=== PATIENT | male | born 1960 | race Caucasian/White ===

== ENCOUNTER → 2017-12-21 10:54 | Outpatient (CLI) | payer MEDICAID, SELFPAY ==
[2017-12-21 12:54] LABS: AST(SGOT) 25 U/L (15-37); Alanine Aminotransfer ALT/SGPT 51 U/L (16-61); Albumin, Serum 3.7 g/dL (3.2-5.0); Alkaline Phosphatase 91 U/L (45-117); Anion Gap 7 (5-15); BUN 11 mg/dL (7-18); BUN/Creat Ratio 15.3 RATIO (10-20); Calcium,Total 8.2 mg/dL (8.5-10.1); Chloride 104 mmol/L (98-107); Cholesterol 162 mg/dL (200); Creatinine, Serum 0.72 mg/dL (0.70-1.30); EST Glomerular Filtration Rate 119 mL/min (>60); Est Glom Filt Rate - Afr Amer 144 mL/min (>60); Globulin 3.7 g/dL (2.2-4.2); Glucose 181 mg/dL (74-106); High Density Lipoprotein 24 mg/dL; Protein, Total 7.4 g/dL (6.4-8.2); Sodium Level 137 mmol/L (136-145); Thyroid Stim Hormone (TSH) 0.96 uIU/mL (0.358-3.74); Triglycerides 457 mg/dL
== END ==
PROVIDERS: Family Provider Family Medicine; PCP Family Medicine; Visit Provider Family Medicine
DX: E11.9 Type 2 diabetes mellitus without complications (principal)
CPT/HCPCS: 36415; 80053; 80061; 84403; 84443

== ENCOUNTER → 2018-06-21 11:23 | Outpatient (CLI) | payer MEDICAID, SELFPAY ==
--- NOTE | 2018-06-21 11:29 | RAD_ITS ---
STUDY: X-RAY - LUMBAR SPINE REASON FOR EXAM: Male, 57 years old. Back pain TECHNIQUE: 5 view(s) of the lumbar spine were obtained. COMPARISON: None FINDINGS: Normal lumbar lordosis. There is no substantial scoliosis. Minimal degenerative retrolisthesis of L4 in relation to L5. There is multilevel endplate spondylosis of the lumbar vertebrae. There is multi-level degenerative disc disease with multi-level disc space narrowing. Disc space narrowing is worst at L4-L5. There is no demonstrated fracture. Bilateral L5 spondylolysis resulting in minimal anterolisthesis of L5-S1. Operative changes of the abdominal wall noted. RAD/L/S Spine Min 4 Views IMPRESSION: 1. Degenerative disc disease most conspicuous at L4-L5. 2. 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 Electronically Signed: Shelton Colindres MD at 12:45 EST , Service support ,
--- NOTE | 2018-06-21 11:29 | RAD_ITS ---
STUDY: X-RAY - THORACIC SPINE REASON FOR EXAM: Male, 57 years old. back pain. TECHNIQUE: 2 view(s) of the thoracic spine were obtained. COMPARISON: None. FINDINGS: There is straightening of the normal thoracic kyphosis. There is no substantial scoliosis. There is multilevel endplate spondylosis of the thoracic vertebrae. There is multilevel disc space narrowing of the thoracic spine. The soft tissue structures are unremarkable. RAD/Thoracic Spine 3 Views IMPRESSION: Moderate degenerative changes. Electronically Signed: Uma Barth MD at 8:49 EST Tel , Service support ,
[2018-06-21 14:40] LABS: ALB/GLOB Ratio 1.1 RATIO (0.9-2.4); AST(SGOT) 19 U/L (15-37); Alanine Aminotransfer ALT/SGPT 44 U/L (16-61); Albumin, Serum 3.9 g/dL (3.2-5.0); Alkaline Phosphatase 107 U/L (45-117); Anion Gap 7 (5-15); BUN 15 mg/dL (7-18); BUN/Creat Ratio 20.4 RATIO (10-20); Calcium,Total 8.7 mg/dL (8.5-10.1); Chloride 105 mmol/L (98-107); Cholesterol 182 mg/dL (200); Creatinine, Serum 0.73 mg/dL (0.70-1.30); EST Glomerular Filtration Rate 117 mL/min (>60); Est Glom Filt Rate - Afr Amer 141 mL/min (>60); Globulin 3.6 g/dL (2.2-4.2); Glucose 208 mg/dL (74-106); High Density Lipoprotein 29 mg/dL; Potassium 4.4 mmol/L (3.5-5.1); Protein, Total 7.5 g/dL (6.4-8.2); Sodium Level 140 mmol/L (136-145); Triglycerides 355 mg/dL; Very Low Density Lipoprotein 71 mg/dL (5-40)
== END ==
PROVIDERS: Family Provider Family Medicine; PCP Family Medicine; Referring Provider Family Medicine; Visit Provider Family Medicine
DX: E11.9 Type 2 diabetes mellitus without complications (principal); M54.6 Pain in thoracic spine; M54.5 Low back pain
CPT/HCPCS: 36415; 72072; 72110; 80053; 80061

== ENCOUNTER → 2019-01-08 | Outpatient (CLI) | payer MEDICAID, SELFPAY ==
[2019-01-08 15:52] LABS: AST(SGOT) 16 U/L (15-37); Alanine Aminotransfer ALT/SGPT 31 U/L (16-61); Albumin, Serum 3.7 g/dL (3.2-5.0); Alkaline Phosphatase 100 U/L (45-117); Anion Gap 7 (5-15); BUN 14 mg/dL (7-18); Calcium,Total 8.8 mg/dL (8.5-10.1); Chloride 106 mmol/L (98-107); Cholesterol 177 mg/dL (200); Creatinine, Serum 0.82 mg/dL (0.70-1.30); EST Glomerular Filtration Rate 102 mL/min (>60); Est Glom Filt Rate - Afr Amer 124 mL/min (>60); Globulin 3.8 g/dL (2.2-4.2); Glucose 171 mg/dL (74-106); High Density Lipoprotein 26 mg/dL; Potassium 4.1 mmol/L (3.5-5.1); Protein, Total 7.5 g/dL (6.4-8.2); Sodium Level 140 mmol/L (136-145); Thyroid Stim Hormone (TSH) 1.28 uIU/mL (0.358-3.74); Triglycerides 405 mg/dL
== END | disposition home or self-care (01) ==
LOC: MFPLAB 11:46
PROVIDERS: Family Provider Family Medicine; PCP Family Medicine; Referring Provider Family Medicine; Visit Provider Family Medicine
DX: E11.9 Type 2 diabetes mellitus without complications (principal)
CPT/HCPCS: 36415; 80053; 80061; 84403; 84443

== ENCOUNTER → 2020-06-22 12:16 | Outpatient (CLI) | payer MEDICAID, SELFPAY ==
[2020-06-22 15:40] LABS: AST(SGOT) 23 U/L (15-37); Alanine Aminotransfer ALT/SGPT 42 U/L (16-61); Albumin, Serum 3.9 g/dL (3.2-5.0); Alkaline Phosphatase 108 U/L (45-117); Anion Gap 4 (5-15); BUN 12 mg/dL (7-18); Calcium,Total 8.9 mg/dL (8.5-10.1); Chloride 105 mmol/L (98-107); Cholesterol 179 mg/dL (200); Creatinine, Serum 0.86 mg/dL (0.70-1.30); EST Glomerular Filtration Rate 97 mL/min (>60); Est Glom Filt Rate - Afr Amer 118 mL/min (>60); Globulin 3.9 g/dL (2.2-4.2); Glucose 140 mg/dL (74-106); High Density Lipoprotein 29 mg/dL; Potassium 4.2 mmol/L (3.5-5.1); Protein, Total 7.8 g/dL (6.4-8.2); Sodium Level 139 mmol/L (136-145); Triglycerides 217 mg/dL; Very Low Density Lipoprotein 43 mg/dL (5-40)
== END ==
PROVIDERS: PCP Family Medicine; Visit Provider Family Medicine
DX: E11.9 Type 2 diabetes mellitus without complications (principal)
CPT/HCPCS: 36415; 80053; 80061

== ENCOUNTER → 2021-01-19 11:30 | Outpatient (CLI) | payer MEDICAID, SELFPAY ==
[2021-01-19 15:06] LABS: Hematocrit 50.3 % (40-54); Hemoglobin 17.3 g/dL (13.0-16.5); Mean Corp Hgb Conc 34.4 g/dL (32-36); Mean Corpuscular Hgb 32.3 pg (27.0-32.0); Platelet Count 275 K/mm3 (150-450); RBC Distribution Width CV 12.2 % (11.6-14.6); RBC Distribution Width SD 42.2 fl (35.1-43.9); Red Blood Count 5.35 M/mm3 (4.6-6.2); White Blood Count 6.4 K/mm3 (4.4-11.0)
[2021-01-19 15:25] LABS: Vitamin B12 > 2000 pg/mL (211-911)
[2021-01-19 15:27] LABS: Hemoglobin A1c 6.3 % (3.8-5.6)
[2021-01-19 15:31] LABS: ALB/GLOB Ratio 0.9 RATIO (0.9-2.4); AST(SGOT) 23 U/L (15-37); Alanine Aminotransfer ALT/SGPT 40 U/L (16-61); Albumin, Serum 3.9 g/dL (3.2-5.0); Alkaline Phosphatase 103 U/L (45-117); Anion Gap 6 (5-15); BUN 16 mg/dL (7-18); BUN/Creat Ratio 21.5 RATIO (10-20); Calcium,Total 8.7 mg/dL (8.5-10.1); Chloride 106 mmol/L (98-107); Cholesterol 177 mg/dL (200); Creatinine, Serum 0.74 mg/dL (0.70-1.30); EST Glomerular Filtration Rate 114 mL/min (>60); Est Glom Filt Rate - Afr Amer 138 mL/min (>60); Globulin 4.2 g/dL (2.2-4.2); Glucose 150 mg/dL (74-106); High Density Lipoprotein 29 mg/dL; PSA,Total - Annual Screen 1.48 ng/mL (0.00-4.00); Potassium 4.1 mmol/L (3.5-5.1); Protein, Total 8.1 g/dL (6.4-8.2); Sodium Level 137 mmol/L (136-145); Thyroid Stim Hormone (TSH) 0.97 uIU/mL (0.358-3.74); Triglycerides 311 mg/dL; Very Low Density Lipoprotein 62 mg/dL (5-40)
== END ==
PROVIDERS: PCP Family Medicine; Referring Provider Family Medicine; Visit Provider Family Medicine
DX: E11.9 Type 2 diabetes mellitus without complications (principal); Z12.5 Encounter for screening for malignant neoplasm of prostate
CPT/HCPCS: 36415; 80053; 80061; 82607; 83036; 84153; 84403; 84443; 85027; G0103

== ENCOUNTER → 2021-09-07 | Outpatient (CLI) | payer MEDICAID, SELFPAY ==
[2021-09-07 15:06] LABS: Absolute Lymphocyte Count 1.82 X10^3/uL (0.83-4.51); Absolute Neutrophil Count 3.7 X10^3/uL (2.0-7.7); Basophil# 0.06 X10^3/uL; Basophil% 0.9 % (0-1); Hematocrit 47.2 % (40-54); Hemoglobin 15.3 g/dL (13.0-16.5); Lymphocyte # 1.82 X10^3/ul (0.83-4.51); Lymphocyte % 27.2 % (19-41); Mean Corp Hgb Conc 32.4 g/dL (32-36); Mean Corpuscular Hgb 31.9 pg (27.0-32.0); Mean Corpuscular Volume 98.3 fL (80-94); Mean Platelet Vol. 10.4 fl (6.2-12.0); Monocyte# 0.53 X10^3/uL; Monocyte% 7.9 % (0-10); NRBC Flagged by Analyzer 0 % (0-5); Neutrophil # 3.67 X10^3/uL (2.7-7.7); Neutrophil % 54.7 % (47-70); Platelet Count 274 K/mm3 (150-450); RBC Distribution Width CV 12.3 % (11.6-14.6); RBC Distribution Width SD 44.7 fl (35.1-43.9); White Blood Count 6.7 K/mm3 (4.4-11.0)
[2021-09-07 15:23] LABS: AST(SGOT) 27 U/L (15-37); Alanine Aminotransfer ALT/SGPT 31 U/L (16-61); Albumin, Serum 3.7 g/dL (3.2-5.0); Alkaline Phosphatase 76 U/L (45-117); Anion Gap 4 (5-15); BUN 18 mg/dL (7-18); BUN/Creat Ratio 20.9 RATIO (10-20); Calcium,Total 8.7 mg/dL (8.5-10.1); Chloride 103 mmol/L (98-107); Cholesterol 153 mg/dL (200); Creatinine, Serum 0.86 mg/dL (0.70-1.30); EST Glomerular Filtration Rate 96 mL/min (>60); Est Glom Filt Rate - Afr Amer 116 mL/min (>60); Globulin 3.7 g/dL (2.2-4.2); Glucose 139 mg/dL (74-106); Hemoglobin A1c 6.2 % (3.8-5.6); High Density Lipoprotein 31 mg/dL; Potassium 4.7 mmol/L (3.5-5.1); Protein, Total 7.4 g/dL (6.4-8.2); Sodium Level 137 mmol/L (136-145); Triglycerides 113 mg/dL; Very Low Density Lipoprotein 23 mg/dL (5-40)
== END | disposition home or self-care (01) ==
LOC: BIMLAB 12:13
PROVIDERS: PCP Internal Medicine; Referring Provider Internal Medicine; Visit Provider Internal Medicine
DX: E11.9 Type 2 diabetes mellitus without complications (principal); E78.5 Hyperlipidemia, unspecified; I10 Essential (primary) hypertension
CPT/HCPCS: 36415; 80053; 80061; 83036; 85025

== ENCOUNTER → 2022-01-12 | Outpatient (CLI) | payer MEDICAID, SELFPAY ==
[2022-01-12 09:57] LABS: Absolute Lymphocyte Count 1.98 X10^3/uL (0.83-4.51); Absolute Neutrophil Count 3.7 X10^3/uL (2.0-7.7); Basophil# 0.03 X10^3/uL; Basophil% 0.4 % (0-1); Eosinophil# 0.45 X10^3/uL; Eosinophils% 6.6 % (0-5); Hematocrit 47.1 % (40-54); Lymphocyte # 1.98 X10^3/ul (0.83-4.51); Mean Corpuscular Hgb 32.2 pg (27.0-32.0); Mean Corpuscular Volume 94.8 fL (80-94); Mean Platelet Vol. 9.1 fl (6.2-12.0); Monocyte# 0.61 X10^3/uL; Monocyte% 8.9 % (0-10); NRBC Flagged by Analyzer 0 % (0-5); Neutrophil # 3.74 X10^3/uL (2.7-7.7); Neutrophil % 54.8 % (47-70); Platelet Count 264 K/mm3 (150-450); RBC Distribution Width CV 12.3 % (11.6-14.6); RBC Distribution Width SD 42.8 fl (35.1-43.9); Red Blood Count 4.97 M/mm3 (4.6-6.2); White Blood Count 6.8 K/mm3 (4.4-11.0)
[2022-01-12 10:22] LABS: AST(SGOT) 18 U/L (15-37); Alanine Aminotransfer ALT/SGPT 33 U/L (16-61); Albumin, Serum 3.8 g/dL (3.2-5.0); Alkaline Phosphatase 95 U/L (45-117); Anion Gap 6 (5-15); BUN 16 mg/dL (7-18); BUN/Creat Ratio 19.9 RATIO (10-20); Chloride 103 mmol/L (98-107); EST Glomerular Filtration Rate 104 mL/min (>60); Est Glom Filt Rate - Afr Amer 126 mL/min (>60); Glucose 147 mg/dL (74-106); Potassium 3.9 mmol/L (3.5-5.1); Protein, Total 7.8 g/dL (6.4-8.2); Sodium Level 138 mmol/L (136-145)
[2022-01-12 10:27] LABS: Hemoglobin A1c 6.2 % (3.8-5.6)
== END | disposition home or self-care (01) ==
LOC: LAB 09:40
PROVIDERS: PCP Internal Medicine; Referring Provider Internal Medicine; Visit Provider Internal Medicine
DX: I10 Essential (primary) hypertension (principal); E11.9 Type 2 diabetes mellitus without complications; E78.5 Hyperlipidemia, unspecified
CPT/HCPCS: 36415; 80053; 83036; 85025

== ENCOUNTER → 2022-07-12 | Outpatient (CLI) | payer MEDICAID, SELFPAY ==
[2022-07-12 09:43] LABS: Microalbumin:Creatinine Ratio 8.8 mg/g CRE (<30 mg/g CRE)
[2022-07-12 09:51] LABS: Hemoglobin A1c 6.7 % (3.8-5.6)
[2022-07-12 09:56] LABS: AST(SGOT) 27 U/L (15-37); Alanine Aminotransfer ALT/SGPT 39 U/L (16-61); Albumin, Serum 3.7 g/dL (3.2-5.0); Alkaline Phosphatase 101 U/L (45-117); Anion Gap 6 (5-15); BUN 21 mg/dL (7-18); BUN/Creat Ratio 24.4 RATIO (10-20); Chloride 103 mmol/L (98-107); Cholesterol 170 mg/dL (200); Creatinine, Serum 0.86 mg/dL (0.70-1.30); EST Glomerular Filtration Rate 96 mL/min (>60); Est Glom Filt Rate - Afr Amer 116 mL/min (>60); Globulin 3.8 g/dL (2.2-4.2); Glucose 159 mg/dL (74-106); High Density Lipoprotein 26 mg/dL; PSA,Total - Annual Screen 2.07 ng/mL (0.00-4.00); Potassium 4.1 mmol/L (3.5-5.1); Protein, Total 7.5 g/dL (6.4-8.2); Sodium Level 139 mmol/L (136-145); Triglycerides 467 mg/dL
== END | disposition home or self-care (01) ==
LOC: LAB 08:38
PROVIDERS: PCP Internal Medicine; Referring Provider Internal Medicine; Visit Provider Internal Medicine
DX: I10 Essential (primary) hypertension (principal); E11.9 Type 2 diabetes mellitus without complications; E78.5 Hyperlipidemia, unspecified; Z12.5 Encounter for screening for malignant neoplasm of prostate
CPT/HCPCS: 84153; 36415; 80053; 80061; 82043; 82570; 83036; G0103

== ENCOUNTER → 2022-11-07 | Outpatient (CLI) | payer MEDICAID, SELFPAY ==
[2022-11-07 10:30] LABS: Absolute Lymphocyte Count 1.83 X10^3/uL (0.83-4.51); Absolute Neutrophil Count 3.3 X10^3/uL (2.0-7.7); Basophil# 0.05 X10^3/uL; Basophil% 0.8 % (0-1); Eosinophils% 6.5 % (0-5); Hematocrit 45.9 % (40-54); Hemoglobin 15.8 g/dL (13.0-16.5); Lymphocyte # 1.83 X10^3/ul (0.83-4.51); Lymphocyte % 29.9 % (19-41); Mean Corp Hgb Conc 34.4 g/dL (32-36); Mean Corpuscular Hgb 32.9 pg (27.0-32.0); Mean Corpuscular Volume 95.6 fL (80-94); Mean Platelet Vol. 9.3 fl (6.2-12.0); Monocyte# 0.51 X10^3/uL; Monocyte% 8.3 % (0-10); NRBC Flagged by Analyzer 0 % (0-5); Neutrophil # 3.32 X10^3/uL (2.7-7.7); Neutrophil % 54.2 % (47-70); Platelet Count 253 K/mm3 (150-450); RBC Distribution Width CV 12.2 % (11.6-14.6); RBC Distribution Width SD 43.7 fl (35.1-43.9); White Blood Count 6.1 K/mm3 (4.4-11.0)
== END | disposition home or self-care (01) ==
LOC: LAB 09:59
PROVIDERS: PCP Internal Medicine; Referring Provider Internal Medicine; Visit Provider Internal Medicine
DX: E11.9 Type 2 diabetes mellitus without complications (principal); I10 Essential (primary) hypertension; E78.5 Hyperlipidemia, unspecified
CPT/HCPCS: 36415; 84443; 85025

== ENCOUNTER → 2022-11-10 | Outpatient (CLI) | payer MEDICAID, SELFPAY ==
[2022-11-10 11:30] LABS: AST(SGOT) 20 U/L (15-37); Alanine Aminotransfer ALT/SGPT 35 U/L (16-61); Albumin, Serum 3.8 g/dL (3.2-5.0); Alkaline Phosphatase 98 U/L (45-117); Anion Gap 5 (5-15); BUN 13 mg/dL (7-18); BUN/Creat Ratio 13.3 RATIO (10-20); Calcium,Total 9.2 mg/dL (8.5-10.1); Chloride 104 mmol/L (98-107); Creatinine, Serum 0.98 mg/dL (0.70-1.30); EST Glomerular Filtration Rate 83 mL/min (>60); Est Glom Filt Rate - Afr Amer 100 mL/min (>60); Globulin 3.9 g/dL (2.2-4.2); Glucose 186 mg/dL (74-106); Protein, Total 7.7 g/dL (6.4-8.2); Sodium Level 137 mmol/L (136-145)
[2022-11-10 11:31] LABS: Insulin 34.3 mU/L (2.6-37.6)
[2022-11-10 11:33] LABS: Hemoglobin A1c 6.3 % (3.8-5.6)
== END | disposition home or self-care (01) ==
PROVIDERS: PCP Internal Medicine; Referring Provider Internal Medicine; Visit Provider Internal Medicine
DX: E11.9 Type 2 diabetes mellitus without complications (principal); E88.81 Metabolic syndrome and other insulin resistance; I10 Essential (primary) hypertension
CPT/HCPCS: 36415; 80053; 83036; 83525

== ENCOUNTER → 2023-05-19 | Outpatient (CLI) | payer MEDICAID, SELFPAY ==
[2023-05-19 09:59] LABS: Absolute Lymphocyte Count 1.81 X10^3/uL (0.83-4.51); Absolute Neutrophil Count 3.9 X10^3/uL (2.0-7.7); Basophil# 0.04 X10^3/uL; Basophil% 0.6 % (0-1); Eosinophil# 0.56 X10^3/uL; Eosinophils% 8.1 % (0-5); Hematocrit 46.3 % (40-54); Hemoglobin 15.7 g/dL (13.0-16.5); Lymphocyte # 1.81 X10^3/ul (0.83-4.51); Lymphocyte % 26.3 % (19-41); Mean Corp Hgb Conc 33.9 g/dL (32-36); Mean Corpuscular Hgb 32.2 pg (27.0-32.0); Mean Corpuscular Volume 94.9 fL (80-94); Mean Platelet Vol. 9.6 fl (6.2-12.0); Monocyte# 0.53 X10^3/uL; Monocyte% 7.7 % (0-10); NRBC Flagged by Analyzer 0 % (0-5); Neutrophil # 3.93 X10^3/uL (2.7-7.7); Platelet Count 251 K/mm3 (150-450); RBC Distribution Width CV 12.1 % (11.6-14.6); RBC Distribution Width SD 42.2 fl (35.1-43.9); Red Blood Count 4.88 M/mm3 (4.6-6.2); White Blood Count 6.9 K/mm3 (4.4-11.0)
[2023-05-19 10:25] LABS: Hemoglobin A1c 6.7 % (3.8-5.6)
[2023-05-19 10:30] LABS: Vitamin D,25 Hydroxy 31.5 ng/mL
[2023-05-19 10:46] LABS: ALB/GLOB Ratio 0.9 RATIO (0.9-2.4); AST(SGOT) 20 U/L (15-37); Alanine Aminotransfer ALT/SGPT 35 U/L (16-61); Albumin, Serum 3.6 g/dL (3.2-5.0); Alkaline Phosphatase 102 U/L (45-117); Anion Gap 5 (5-15); BUN 15 mg/dL (7-18); BUN/Creat Ratio 17.1 RATIO (10-20); Calcium,Total 8.9 mg/dL (8.5-10.1); Chloride 106 mmol/L (98-107); Cholesterol 176 mg/dL (200); Creatinine, Serum 0.88 mg/dL (0.70-1.30); EST Glomerular Filtration Rate 94 mL/min (>60); Est Glom Filt Rate - Afr Amer 113 mL/min (>60); Globulin 3.8 g/dL (2.2-4.2); Glucose 164 mg/dL (74-106); High Density Lipoprotein 30 mg/dL; Potassium 4.1 mmol/L (3.5-5.1); Protein, Total 7.4 g/dL (6.4-8.2); Sodium Level 140 mmol/L (136-145); Triglycerides 290 mg/dL; Very Low Density Lipoprotein 58 mg/dL (5-40)
== END | disposition home or self-care (01) ==
LOC: LAB 09:11
PROVIDERS: PCP Internal Medicine; Referring Provider Internal Medicine; Visit Provider Internal Medicine
DX: I10 Essential (primary) hypertension (principal); E11.9 Type 2 diabetes mellitus without complications; E88.810 Metabolic syndrome; E78.5 Hyperlipidemia, unspecified; E55.9 Vitamin D deficiency, unspecified; Z13.220 Encounter for screening for lipoid disorders
CPT/HCPCS: 36415; 80053; 80061; 82306; 83036; 85025

== ENCOUNTER → 2023-11-15 | Outpatient (CLI) | payer MEDICAID, SELFPAY ==
[2023-11-15 12:26] LABS: Absolute Lymphocyte Count 1.89 X10^3/uL (0.83-4.51); Absolute Neutrophil Count 2.9 X10^3/uL (2.0-7.7); Basophil# 0.04 X10^3/uL; Basophil% 0.7 % (0-1); Eosinophil# 0.33 X10^3/uL; Eosinophils% 5.7 % (0-5); Hematocrit 46.2 % (40-54); Hemoglobin 15.9 g/dL (13.0-16.5); Lymphocyte # 1.89 X10^3/ul (0.83-4.51); Lymphocyte % 32.9 % (19-41); Mean Corp Hgb Conc 34.4 g/dL (32-36); Mean Corpuscular Hgb 32.2 pg (27.0-32.0); Mean Corpuscular Volume 93.5 fL (80-94); Mean Platelet Vol. 9.8 fl (6.2-12.0); Monocyte# 0.53 X10^3/uL; Monocyte% 9.2 % (0-10); NRBC Flagged by Analyzer 0 % (0-5); Neutrophil # 2.94 X10^3/uL (2.7-7.7); Neutrophil % 51.2 % (47-70); Platelet Count 241 K/mm3 (150-450); RBC Distribution Width CV 12.2 % (11.6-14.6); RBC Distribution Width SD 42.4 fl (35.1-43.9); Red Blood Count 4.94 M/mm3 (4.6-6.2); White Blood Count 5.8 K/mm3 (4.4-11.0)
[2023-11-15 13:15] LABS: ALB/GLOB Ratio 1.1 RATIO (0.9-2.4); AST(SGOT) 21 U/L (15-37); Alanine Aminotransfer ALT/SGPT 30 U/L (16-61); Albumin, Serum 3.8 g/dL (3.2-5.0); Alkaline Phosphatase 85 U/L (45-117); Anion Gap 3 (5-15); BUN 15 mg/dL (7-18); BUN/Creat Ratio 15.5 RATIO (10-20); Chloride 105 mmol/L (98-107); Cholesterol 144 mg/dL (200); Creatinine, Serum 0.97 mg/dL (0.70-1.30); EST Glomerular Filtration Rate 84 mL/min (>60); Est Glom Filt Rate - Afr Amer 101 mL/min (>60); Globulin 3.6 g/dL (2.2-4.2); Glucose 130 mg/dL (74-106); High Density Lipoprotein 31 mg/dL; Magnesium 2.3 mg/dL (1.6-2.6); PSA,Total - Annual Screen 2.83 ng/mL (0.00-4.00); Potassium 4.5 mmol/L (3.5-5.1); Protein, Total 7.4 g/dL (6.4-8.2); Sodium Level 138 mmol/L (136-145); Thyroid Stim Hormone (TSH) 0.84 uIU/mL (0.358-3.74); Triglycerides 186 mg/dL; Very Low Density Lipoprotein 37 mg/dL (5-40)
[2023-11-15 13:48] LABS: Hemoglobin A1c 6.1 % (3.8-5.6)
[2023-11-15 21:47] LABS: Vitamin D,25 Hydroxy 35.1 ng/mL
== END | disposition home or self-care (01) ==
LOC: BIMLAB 10:19
PROVIDERS: PCP Internal Medicine; Visit Provider Internal Medicine
DX: Z13.220 Encounter for screening for lipoid disorders (principal); E11.9 Type 2 diabetes mellitus without complications; E88.810 Metabolic syndrome; B35.1 Tinea unguium; E78.5 Hyperlipidemia, unspecified; I10 Essential (primary) hypertension; Z12.5 Encounter for screening for malignant neoplasm of prostate; E55.9 Vitamin D deficiency, unspecified
CPT/HCPCS: 84153; 36415; 80053; 80061; 82306; 83036; 83735; 84443; 85025; G0103

== ENCOUNTER → 2024-03-20 | Outpatient (CLI) | payer MEDICAID, SELFPAY ==
[2024-03-20 12:39] LABS: AST(SGOT) 24 U/L (15-37); Alanine Aminotransfer ALT/SGPT 29 U/L (16-61); Albumin, Serum 3.8 g/dL (3.2-5.0); Alkaline Phosphatase 88 U/L (45-117); Anion Gap 4 (5-15); BUN 16 mg/dL (7-18); BUN/Creat Ratio 17.5 RATIO (10-20); Calcium,Total 9.2 mg/dL (8.5-10.1); Chloride 104 mmol/L (98-107); Cholesterol 184 mg/dL (200); Creatinine, Serum 0.92 mg/dL (0.70-1.30); EST Glomerular Filtration Rate 89 mL/min (>60); Est Glom Filt Rate - Afr Amer 107 mL/min (>60); Glucose 164 mg/dL (74-106); High Density Lipoprotein 33 mg/dL; Potassium 4.3 mmol/L (3.5-5.1); Protein, Total 7.8 g/dL (6.4-8.2); Sodium Level 138 mmol/L (136-145); Triglycerides 231 mg/dL; Very Low Density Lipoprotein 46 mg/dL (5-40)
[2024-03-20 13:39] LABS: Hemoglobin A1c 6.3 % (3.8-5.6)
== END | disposition home or self-care (01) ==
LOC: BIMLAB 08:39
PROVIDERS: PCP Internal Medicine; Referring Provider Internal Medicine; Visit Provider Internal Medicine
DX: E11.9 Type 2 diabetes mellitus without complications (principal); I10 Essential (primary) hypertension; E78.5 Hyperlipidemia, unspecified; E88.810 Metabolic syndrome; Z13.220 Encounter for screening for lipoid disorders
CPT/HCPCS: 36415; 80053; 80061; 83036; 83735

== ENCOUNTER 2024-09-19 09:46 | Outpatient (CLI) | payer MEDICAID, SELFPAY ==
[2024-09-19 11:46] LABS: Absolute Lymphocyte Count 2.74 X10^3/uL (0.83-4.51); Absolute Neutrophil Count 5.3 X10^3/uL (2.0-7.7); Basophil# 0.05 X10^3/uL; Basophil% 0.5 % (0-1); Eosinophils% 4.3 % (0-5); Hematocrit 46.1 % (40-54); Lymphocyte # 2.74 X10^3/ul (0.83-4.51); Lymphocyte % 29.7 % (19-41); Mean Corp Hgb Conc 34.7 g/dL (32-36); Mean Corpuscular Hgb 33.4 pg (27.0-32.0); Mean Corpuscular Volume 96.2 fL (80-94); Mean Platelet Vol. 9.5 fl (6.2-12.0); Monocyte# 0.67 X10^3/uL; Monocyte% 7.3 % (0-10); NRBC Flagged by Analyzer 0 % (0-5); Neutrophil # 5.33 X10^3/uL (2.7-7.7); Neutrophil % 57.9 % (47-70); Platelet Count 257 K/mm3 (150-450); RBC Distribution Width CV 11.9 % (11.6-14.6); RBC Distribution Width SD 42.5 fl (35.1-43.9); Red Blood Count 4.79 M/mm3 (4.6-6.2); White Blood Count 9.2 K/mm3 (4.4-11.0)
[2024-09-19 12:01] LABS: Hemoglobin A1c 7.1 % (<=5.6)
[2024-09-19 12:39] LABS: Cholesterol 241 mg/dL (<=200); High Density Lipoprotein 25 mg/dL; Low Density Lipoprotein Calc. 44 mg/dL; Thyroid Stim Hormone (TSH) 0.992 uIU/mL (0.300-4.200); Triglycerides 864 mg/dL; Very Low Density Lipoprotein 173 mg/dL (5-40); Vitamin D,25 Hydroxy 21.5 ng/mL (30-100)
[2024-09-19 12:41] LABS: ALB/GLOB Ratio 1.3 RATIO (0.9-2.4); AST(SGOT) 27 U/L (<=37); Alanine Aminotransfer ALT/SGPT 28 U/L (<=46); Albumin, Serum 4.3 g/dL (3.4-4.8); Alkaline Phosphatase 102 U/L (40-129); Anion Gap 13 (5-15); BUN 17 mg/dL (4-19); BUN/Creat Ratio 22.9 RATIO (10-20); Calcium,Total 8.9 mg/dL (7.6-11.0); Carbon Dioxide 23.8 mmol/L (21.0-32.0); Chloride 101 mmol/L (98-108); Creatinine, Serum 0.76 mg/dL (0.70-1.20); EST Glomerular Filtration Rate 101 (>60); Globulin 3.2 g/dL (2.2-4.2); Glucose 126 mg/dL (70-99); Protein, Total 7.5 g/dL (5.9-8.4); Sodium Level 138 mmol/L (133-145); Total Bilirubin 0.24 mg/dL (0.00-1.30)
== END 2024-09-19 23:59 | disposition home or self-care (01) ==
LOC: LAB 09:48
PROVIDERS: PCP Internal Medicine; Referring Provider Internal Medicine; Visit Provider Internal Medicine
DX: E88.810 Metabolic syndrome (principal); E11.65 Type 2 diabetes mellitus with hyperglycemia; E78.5 Hyperlipidemia, unspecified; I10 Essential (primary) hypertension; Z13.220 Encounter for screening for lipoid disorders; E55.9 Vitamin D deficiency, unspecified
CPT/HCPCS: 36415; 80053; 80061; 82306; 83036; 84443; 85025

== ENCOUNTER → 2024-12-26 | Outpatient (CLI) | payer MEDICAID, SELFPAY ==
[2024-12-26 14:02] LABS: Cholesterol 154 mg/dL (<=200); Low Density Lipoprotein Calc. 89 mg/dL; Triglycerides 165 mg/dL; Very Low Density Lipoprotein 33 mg/dL (5-40); cholesterol:hdl ratio screen 4.87
== END | disposition home or self-care (01) ==
LOC: LAB 12:17
PROVIDERS: PCP Internal Medicine; Referring Provider Internal Medicine; Visit Provider Internal Medicine
DX: E11.65 Type 2 diabetes mellitus with hyperglycemia (principal); E88.810 Metabolic syndrome; Z13.220 Encounter for screening for lipoid disorders
CPT/HCPCS: 36415; 80061; 83036

== ENCOUNTER → 2025-03-26 | Outpatient (CLI) | payer MEDICAID, SELFPAY ==
--- OUTSIDE RECORDS SUMMARY | 2025-03-26 10:55 | XMS RPT_ITS | CCD ---
Author Organization [facility] Care Team Providers Care Programmer Or Analyst Name Role Phone Dr. Jordan Whalen Referring Provider Dr. Keren Ma Primary Care Provider Dr. Keren Ma Attending Provider Dr. Keren Ma Primary Care Provider Dr. Keren Ma Attending Provider Dr. Keren Ma Primary Care Provider Dr. Keren Ma Attending Provider [phone] Anil BRANCH, Dr. Veliz Primary Care Provider [phone] Anil BRANCH, Dr. Veliz Attending Provider Anil BRANCH, Dr. Veliz Referring Provider Anil BRANCH, Dr. Veliz Primary Care Provider [phone] Anil BRANCH, Dr. Veliz Attending Provider Keren Ma Primary Care Unavailable Keren Ma Attending Unavailable Keren Ma Primary Care Unavailable Keren Ma Attending Unavailable Keren Ma Referring Unavailable Keren Ma Primary Care Unavailable Keren Ma Attending Unavailable Keren Ma Referring Unavailable Keren Ma Attending Unavailable Keren Ma Referring Unavailable Keren Ma Primary Care Unavailable Keren Ma Primary Care Unavailable Keren Ma Attending Unavailable Keren Ma Primary Care Unavailable Keren Ma Attending Unavailable Keren Ma Attending Unavailable Keren Ma Primary Care Unavailable Medications Current Medications Medication Drug Class(es) Dates Sig (Normalized) Sig (Original) Dulaglutide (12 sources) GLP-1 Receptor Agonist Start: 12-30-2024 Dulaglutide 3 mg/0.5 mL pen injector Active 3 mg SC EVERY WEEK 2 December 30, 2024 9:59am Start: 10-30-2024 End: 12-30-2024 Dulaglutide 1.5 mg/0.5 mL pe n injector Discontinued 1.5 mg SC EVERY WEEK 2 October 30, 2024 9:44am December 30, 2024 10:04am Start: 08-12-2024 End: 10-30-2024 Dulaglutide (Trulicity) 0.75 mg/0.5 mL pen injector Discontinued 0.75 mg SC EVERY WEEK 2 September 23, 2024 11:16am October 30, 2024 9:44am Completed/Discontinued Medications Medication Drug Class(es) Dates Sig (Normalized) Sig (Original) alogliptin 25 mg oral tablet (20 sources) Start: 05-18-19 End: 08-13-19 take 1 tablet by mouth once daily Alogliptin 25 mg tablet Discontinued 25 mg PO DAILY 90 July 17, 2024 12:37pm August 12, 2024 1:38pm amLODIPine 10 mg / benazepril hydrochloride 40 mg oral capsule (20 sources) Dihydropyridine Calcium Channel Shannon, Angiotensin Converting Enzyme Inhibitor Start: 05-18-19 End: 07-18-19 Amlodipine-Benazepril (Lotrel) 10-40 mg capsule Discontinued 1 NMA PO DAILY 90 September 04, 2023 2:42pm July 17, 2024 12:37pm ciclopirox 80 mg/ml topical solution (4 sources) Start: 05-24-19 End: 03-25-20 Ciclopirox 8 % solution Discontinued 1 NMA TOPICAL AT BEDTIME 6.6 28 May 24, 2023 1:00am March 25, 2024 12:01pm hydroCHLOROthiazide 12.5 mg oral capsule (20 sources) Thiazide Diuretic Start: 05-18-19 End: 07-18-19 take 1 capsule by mouth once daily Hydrochlorothiazide 12.5 mg capsule Discontinued 12.5 mg PO DAILY 90 January 12, 2024 1:07pm July 17, 2024 12:37pm metFORMIN hydrochloride 1000 mg oral tablet (20 sources) Biguanide Start: 05-18-19 End: 07-18-19 take 1 tablet by mouth twice daily Metformin 1,000 mg tablet Discontinued 1000 mg PO TWICE A DAY 180 August 14, 2023 10:55am July 17, 2024 12:37pm pravastatin sodium 40 mg oral tablet (20 sources) HMG-CoA Reductase Inhibitor Start: 05-18-19 End: 07-18-19 take 1 tablet by mouth at bedtime Pravastatin 40 mg tablet Discontinued 40 mg PO AT BEDTIME 90 September 04, 2023 2:42pm July 17, 2024 12:37pm terbinafine hydrochloride 10 mg/ml topical cream (19 sources) Allylamine Antifungal Start: 11-15-19 End: 03-25-20 Terbinafine Hcl 1 % cream Discontinued 1 NMA TOPICAL TWICE A DAY 30 November 14, 2022 1:19pm March 25, 2024 12:02pm Treat toes as directed. Start: 09-14-2021 End: 07-18-2022 Terbinafine Hcl 1 % cream Di scontinued 1 NMA TOPICAL TWICE A DAY 30 November 22, 2021 12:38pm July 18, 2022 1:03pm Treat toes as directed. triamcinolone acetonide 1 mg/ml topical cream (6 sources) Corticosteroid Start: 07-18-2022 End: 03-25-2024 Triamcinolone Acetonide 0.1 % cream Discontinued 1 NMA TOPICAL TWICE A DAY 30 July 18, 2022 12:00am March 25, 2024 12:02pm Eczema Dermatitis, unspecified Problems Active Problems Problem Classification Problem Date Documented Da te Episodic/Chronic Allergic reactions (7 sources) Eczema; Translations: [Dermatitis, unspecified] 07-18-2022 Episodic Diabetes mellitus with complications (1 source) Type 2 diabetes mellitus with hyperglycemia; Translations: [Type 2 diabetes mellitus with hyperglycemia] Onset: 01-01-2025 Chronic Diabetes mellitus without complication (18 sources) Type 2 diabetes mellitus without complication; Translations: [Type 2 diabetes mellitus without complications] Onset: 12-30-2024 Chronic Disorders of lipid metabolism (15 sources) Hyperlipidemia; Translations: [Hyperlipidemia, unspecified] Onset: 12-30-2024 Chronic Essential hypertension (15 sources) Essential hypertension; Translations: [Essential (primary) hypertension] Onset: 12-30-2024 Chronic Other nutritional; endocrine; and metabolic disorders (11 sources) Insulin resistance; Translations: [Metabolic syndrome] 11-09-2022 Chronic Other nutritional; endocrine; and metabolic disorders (3 sources) Metabolic syndrome; Translations: [Dysmetabolic syndrome X] Onset: 09-23-2024 11-14-2022 Chronic Past or Other Problems Problem Classification Problem Date Documented Da te Episodic/Chronic Mycoses (10 sources) Onychomycosis; Translations: [Tinea unguium] Onset: 09-23-2024 09-14-2021 Episodic Results Test Name Value Interpretation Reference Range Facility MR/BMS.IMBon 12-30-2024 MR/BMS.IMB [facility] [address] [place] [address] OFFICE VISIT Date of Service: 12/30/24 MR#: [id number] Acct: [id number] Name: GIAN CARBALLO Rep #: [id number] : 1960 Provider: Dr. Keren glass MD Age/Sex: 64/M Location: [facility] Status: Signed Intake Vital Signs 09/23/24 11:06 12/30/24 09:27 Height 5 ft 8 in 5 ft 8 in Weight: 209 lb 8 oz 204 lb 6 oz BMI 31.8 31.0 BP 144/89 H 143/91 H Blood Pressure Location Rt brachial Lt brachial Position Sitting Sitting Respiration 16 16 Pulse 95 93 Pulse Source Monitor Monitor Temp 98.4 F 98.4 F Temp Source Temporal Temporal Pulse Oximetry (%) 94 95 Oxygen Delivery Method room air room air Intake Visit Reasons: 2 M FU Chief Complaint: no acute concerns Fitness Director Required: No Accompanied by: Self Is patient in pain?: No Allergies No Known Allergies Allergy (Verified 12/30/24 09:23) Medications ???Medication ???Instructions ???Recorded ???Confirmed ???Type amlodipine 10 mg-benazepril 40 mg 1 cap PO DAILY #90 caps 07/17/24 12/30/24 Rx capsule (Lotrel) hydrochlorothiazide 12.5 mg capsule 12.5 mg PO DAILY #90 caps 07/1712/30/24 Rx metformin 1,000 mg tablet 1,000 mg PO BID #180 tabs 07/17/24 12/30/24 Rx pravastatin 40 mg tablet 40 mg PO QHS #90 tabs 07/17/24 Rx dulaglutide 3 mg/0.5 mL 3 mg (0.5 mL) subcut QWEEK #2 mL 0 12/30/24 12/30/24 Rx subcutaneous pen injector [facility] Medical History Cataract Umbilical hernia Family History Other Diabetes Hypertension Social History Smoking Status: Former smoker alcohol intake: never substance use type: does not use HPI HPI Chief Complaint: no acute concerns Details: GIAN CARBALLO, is a 64 M who presents to the office today for 2-month follow-up. He is now on Trulicity at 1.5 mg. He initially had some very mild nausea when increasing to the 1.5 mg dosing, similar to when he first started Trulicity. He feels ready to increase however at this point. He is down about 5 pounds. A lot of increased stress recently with some things going on in his apartment. He apparently has some leaking plumbing to which she states the landlord has not been willing to fix or address. Overall however he feels well. He is continuing to try any better quality diet as a whole which she has been out for a while. Eating some fresh fruits and vegetables regularly. Bowel movements have been regular. No abdominal pain. No swelling or masses in the body that he has noticed. Labs were obtained recently. It was reviewed with patient. His A1c is down to 6.4 now. Review of systems per chart. Physical exam. Vital signs on chart. PERRLA. Sclera are clear. Posterior pharynx is unremarkable. Good dentition. No cervical or supraclavicular lymph nodes enlarged or tender. No clear thy romegaly. No thyroid nodules readily palpable. He has some mild fullness to the left submandibular gland which he states has been there for probably 30 years. Nontender. Not changing in size. Lungs are without wheeze, rhonchi, rales. No E/A changes are heard. Heart is regular. Not tachycardic. No clear murmur, rub, or gallop is identified. The abdomen is soft. Bowel sounds are present. Nontender nondistended abdomen. No clear palpable masses in the abdomen. No significant leg edema. ROS Const Constitutional: No body ache, chills, excessive sweating, fatigue, fever(s), frequent falls, headache(s), snoring, weakness or change in appetite Eyes Eyes: No blurry vision, change in vision, eye pain or Light sensitivity ENT ENT: No abnormal hearing, ear or mastoid pain, tinnitus, nasal congestion, headache(s), neck pain or sore throat Resp Respiratory: No cough, shortness of breath, snoring or wheezing Cardio Cardiology: No chest pain at rest, chest pain with exertion, excessive sweating, dyspnea on exertion, lightheadedness, orthopnea or palpitations Gastro GI: No abdominal pain, change in bowel habits, constipation, cramping, diarrhea, nausea/dyspepsia or vomiting Genitourinary Male: No burning urination, painful urination, urinary incontinence or urinary frequency Musc Musculoskeletal: No abnormal gait, joint pain, back pain, limited range of motion, muscle weakness, neck pain or numbness Skin Skin: No dry skin, redness, lesions, itchy eyes, rash or wounds Neuro Neurology: No abnormal gait, abnormal hearing, weakness, frequent falls, headache(s), memory loss or numbness Psych Psychiatric: No anxiety, No change in appetite, No depression, No memory loss, No Thoughts of harming yourself/Others and Positive for other (Stressed ) Endo Endocri (more content not included)... Normal [facility] Calculated very low density lipoprotein (VLDL) cholesterol measurementOrdered By: Keren Ma on 12-26-2024 Calculated very low density lipoprotein (VLDL) cholesterol measurement 33 mg/dL 5-40 [facility] Hemoglobin A1con 12-26-2024 HbA1c (Bld) [Mass fraction] 6.4 % High <=5.6 [facility] Comment on above: Result Comment: Norm al < 5.7 % Prediabetic 5.7 - 6.4 % Diabetic >or= 6.5 % Please note range changes. Performed By: #### L 501.9985, L500.4100 #### [facility] [address] [place], [address] Hemoglobin A1c percentageOrd ered By: Keren Ma on 12-26-2024 HbA1c (Bld) [Mass fraction] 6.4 % High <5.7 [facility] Comment on above: Normal < 5.7 % Predi abetic 5.7 - 6.4 % Diabetic >or= 6.5 % Please note range changes. LDL calc ser/plasOrdered By: Keren Ma on 12-26-2024 Cholesterol in LDL [Mass/Vol] 89 mg/dL [facility] Comment on above: Nnezmmofqq=660-951 m g/dL & Higher Caig=159 mg/dL or greaterFriedwald Equation for LDL-C Lipid Profileon 12-26-2024 CHOL:HDL 4.87 Normal [facility] Comment on above: Order Comment: PT IRASEMA Ji UPSET WITH ME DUE TO THE REGISTRATION LADIES GIVING HIM THE 99TH DEGREE AND ASKING QUESTIONS Performed By: #### L [id number], L500.4100 #### [facility] [address] [place], [address] Cholesterol [Mass/Vol] 154 mg/dL Normal <=200 [facility] Comment on above: Order Comment: PT IRASEMA Ji UPSET WITH ME DUE TO THE REGISTRATION LADIES GIVING HIM THE 99TH DEGREE AND ASKING QUESTIONS Result Comment: Chol esterol level, Desirable <200 mg/dL Borderline high cholesterol 200-239 mg/dL High cholesterol >=240 mg/dL Recommendations of the NCEP Adult Treatment Panel for the following risk-cutoff thresholds for the [place] population. Performed By: #### L [id number], L500.4100 #### [facility] [address] [place], [address] Cholesterol in HDL [Mass/Vol] 32 mg/dL Low [facility] Comment on above: Order Comment: PT IRASEMA Ji UPSET WITH ME DUE TO THE REGISTRATION LADIES GIVING HIM THE 99TH DEGREE AND ASKING QUESTIONS Result Comment: [place] onal Cholesterol Education Program (NCEP) guidelines: <40 mg/dL: Low HDL-cholesterol (major risk factor for CHD) >= 60 mg/dL: High HDL-cholesterol (negative risk factor for CHD) HDL-cholesterol is affected by a number of factors, e.g. smoking, exercise, hormones, sex and age. Performed By: #### L [id number], L500.4100 #### [facility] [address] [place], [address] Cholesterol in LDL [Mass/Vol] 89 mg/dL Normal [facility] Comment on above: Order Comment: PT IRASEMA Garrison UPSET WITH ME DUE TO THE REGISTRATION LADIES GIVING HIM THE 99TH DEGREE AND ASKING QUESTIONS Result Comment: Bord yquogi=187-416 mg/dL Higher Tkqa=224 mg/dL or greater Friedwald Equation for LDL-C Performed By: #### L [id number], L500.4100 #### [facility] [address] [place], [address] Cholesterol in VLDL [Mass/Vol] 33 mg/dL Normal 5-40 [facility] Comment on above: Order Comment: PT IRASEMA Ji UPSET WITH ME DUE TO THE REGISTRATION LADIES GIVING HIM THE 99TH DEGREE AND ASKING QUESTIONS Performed By: #### L [id number], L500.4100 #### [facility] [address] [place], [address] Triglyceride [Mass/Vol] 165 mg/dL Normal [facility] Comment on above: Order Comment: PT IRASEMA Ji UPSET WITH ME DUE TO THE REGISTRATION LADIES GIVING HIM THE 99TH DEGREE AND ASKING QUESTIONS Result Comment: The drugs N-Acetylcysteine and Metamizole may falsely depress this assay. Normal range: <150 mg/dL Borderline High: 150-199 mg/dL High: 200-499 mg/dL Very High: >500 mg/dL Performed By: #### L [id number], L500.4100 #### [facility] [address] [place], [address] Screening total cholesterol/ high density lipoprotein (HDL) cholesterol ratioOrdered By: Keren Ma on 12-26-2024 Cholesterol.total/Choles terol in HDL [Mass ratio] 4.87 {ratio} [facility] Serum or plasma cholesterol in HDL measurement (mass/volume)Ordered By: Keren Ma on 12-26-2024 Cholesterol in HDL [Mass/Vol] 32 mg/dL Low >40 [facility] Comment on above: National Cholesterol Education Program (NCEP) guidelines:<40 mg/dL: Low HDL-cholesterol (major risk factor for CHD)>= 60 mg/dL: High HDL-cholesterol (negative risk factor for CHD)HDL-cholesterol is affected by a number of factors, e.g. smoking, exercise, hormones, sex and age. Serum or plasma cholesterol measurement (mass/volume)Ordered By: Keren Ma on 12-26-2024 Cholesterol [Mass/Vol] 154 mg/dL <201 [facility] Comment on above: Cholesterol level, D esirable <200 mg/dLBorderline high cholesterol 200-239 mg/dLHigh cholesterol >=240 mg/dLRecommendations of the NCEP Adult Treatment Panel for the following risk-cutoff thresholds for the [place] population. Triglycerides measurementOrd ered By: Keren Ma on 12-26-2024 Triglyceride [Mass/Vol] 165 mg/dL <199 [facility] Comment on above: The drugs N-Acetylcy steine and Metamizole may falsely depress this assay. Normal range: <150 mg/dLBorderline High: 150-199 mg/dLHigh: 200-499 mg/dLVery High: >500 mg/dL MR/Imer 09-23-2024 MR/B [facility] [address] [place] [address] OFFICE VISIT Date of Service: 09/23/24 MR#: [id number] Acct: [id number] Name: GIAN CARBALLO Rep #: [id number] : 1960 Provider: Dr. Keren glass MD Age/Sex: 63/M Location: [facility] Status: Signed Intake Vital Signs 03/25/24 11:03 08/12/24 13:09 09/23/24 11:06 Height 5 ft 8 in 5 ft 8 in 5 ft 8 in Weight: 205 lb 6 oz 209 lb 8 oz BMI 31.2 31.8 BP 138/82 H 144/89 H Blood Pressure Location Lt brachial Rt brachial Position Sitting Sitting Respiration 16 16 Pulse 99 95 Pulse Source Monitor Monitor Temp 98.7 F 98.4 F Temp Source Temporal Temporal Pulse Oximetry (%) 97 94 Oxygen Delivery Method room air room air Intake Visit Reasons: 1.5 M FU Chief Complaint: 1.5 M FU Fitness Director Required: No Accompanied by: Self Is patient in pain?: No Allergies No Known Allergies Allergy (Verified 09/23/24 10:59) Medications ???Medication ???Instructions ???Recorded ???Confirmed ???Type amlodipine 10 mg-benazepril 40 mg 1 cap PO DAILY #90 caps 07/17/24 09/23/24 Rx capsule (Lotrel) hydrochlorothiazide 12.5 mg capsule 12.5 mg PO DAILY #90 caps 07/1709/23/24 Rx metformin 1,000 mg tablet 1,000 mg PO BID #180 tabs 07/17/24 09/23/24 Rx pravastatin 40 mg tablet 40 mg PO QHS #90 tabs 07/17/24 Rx dulaglutide 0.75 mg/0.5 mL 0.75 mg (0.5 mL) subcut QWEEK #2 m L 09/23/24 09/23/24 Rx subcutaneous pen injector (Trulicity) PFSH Medical History Cataract Umbilical hernia Family History Other Diabetes Hypertension Social History Smoking Status: Former smoker alcohol intake: never substance use type: does not use HPI HPI Chief Complaint: 1.5 M FU Details: GIAN CARBALLO, is a 63 M who presents to the office today for 1.5-month follow-up since last visit as we had started him on Trulicity. He believes he has had about 6 doses now. The first 2 doses he did have nausea for 2 days after administration and somewhat of a sense of mild fatigue Less energy. That seems to have largely faded at this point in time. He however has had some ongoing mild GI changes. He is on metformin at basically maximal dose as well. As a reminder, he was previously on alogliptin for which his insurance has basically stopped covering. We looked at alternatives and settled on Trulicity. He is noting some sense of early satiety, and generally speaking not as hungry as he had been in the past. And while the nausea has faded, however he has had some mild GI symptoms including some intermittent loose stool. Not severe not diarrhea but just change. He has not experienced any fever, chills or other concerns. Review of systems per chart. Physical exam. Vital signs on chart. I have not performed any significant physical examination today. See my prior notes for full physical exam. ROS Const Constitutional: Positive for fatigue, decreased energy and change in appetite; No body ache, chills, excessive sweating, fever(s), frequent falls, headache(s), snoring or weakness Eyes Eyes: No blurry vision, change in vision, eye pain or Light sensitivity ENT ENT: No abnormal hearing, ear or mastoid pain, tinnitus, nasal congestion, headache(s), neck pain or sore throat Resp Respiratory: No cough, shortness of breath, snoring or wheezing Cardio Cardiology: No chest pain at rest, chest pain with exertion, excessive sweating, dyspnea on exertion, lightheadedness, orthopnea or palpitations Gastro GI: No abdominal pain, change in bowel habits, constipation, cramping, diarrhea, nausea/dyspepsia or vomiting Genitourinary Male: No burning urination, painful urination, urinary incontinence or urinary frequency Musc Musculoskeletal: No abnormal gait, joint pain, back pain, limited range of motion, muscle weakness, neck pain or numbness Skin Skin: No dry skin, redness, lesions, itchy eyes, rash or wounds Neuro Neurology: No abnormal gait, abnormal hearing, weakness, frequent falls, headache(s), memory loss or numbness Psych Psychiatric: No anxiety, Positive for change in appetite, No depression, No memory loss and No Thoughts of harming yourself/Others Endo Endocrine: Positive for fatigue; No cold intolerance, excessive sweating, flushing, heat intolerance, increased thirst/drinking or increased hunger Aller/Imm Allergy/Immunologic: No itchy eyes, seasonal allergy symptoms, hives or wheezing Tom/Lymp Hematologic/Lymphatic: No easy bleeding or easy bruising Coding Level of Care Code Off vis,est,level 3 Diagnoses Insulin resistance E88.81 DM w/o complication type II E11. (more content not included)... Normal [facility] Absolute lymphocyte countOrd ered By: Keren Ma on 09-19-2024 Lymphocytes Auto (Unsp spec) [#/Vol] 2.74 10*3/uL 0.83-4.51 [facility] Absolute neutrophil countOrd ered By: Keren Ma on 09-19-2024 Neutrophils (Bld) [#/Vol] 5.3 10*3/uL 2.0-7.7 [facility] Anion gap in Serum or Plasma Ordered By: Keren Ma on 09-19-2024 Anion gap [Moles/Vol] 13 mmol/L 09-19 [facility] Automated lymphocyte count a s percentage of total leukocytesOrdered By: Keren Ma on 09-19-2024 Lymphocytes/100 WBC Auto (Unsp spec) 29.7 % - [facility] BUN/creatinine ratioOrdered By: Keren Ma on 09-19-2024 Urea nitrogen/Creatinine [Mass ratio] 22.9 mg/mg High - [facility] Basophil percentageOrdered B y: Keren Ma on 09-19-2024 Basophils/100 WBC (Bld) 0.5 % 0- [facility] Bilirubin, totalOrdered By: Keren Ma on 09-19-2024 Bilirubin [Mass/Vol] 0.24 mg/dL 0.00-1.30 [facility] CBC W/Diff, Automatedon 09-05 Absolute Lymph 2.74 X10 3/uL Normal 0.83-4.51 [facility] Comment on above: Performed By: #### L 501.9985, L500.4100, L501.9520, L100.0100, L506.1001, L500.4050 #### [facility] [address] [place], [place], [id number] Absolute Neut 5.3 X10 3/uL Normal 2.0-7.7 [facility] Comment on above: Performed By: #### L 501.9985, L500.4100, L501.9520, L100.0100, L506.1001, L500.4050 #### [facility] [address] [place], [address] Basophils/100 WBC (Bld) 0.5 % Normal 0-1 [facility] Comment on above: Performed By: #### L 501.9985, L500.4100, L501.9520, L100.0100, L506.1001, L500.4050 #### [facility] [address] [place], [address] Eosinophils/100 WBC (Bld) 4.3 % Normal 0-5 [facility] Comment on above: Performed By: #### L 501.9985, L500.4100, L501.9520, L100.0100, L506.1001, L500.4050 #### [facility] [address] [place], [address] Erythrocyte distribution width (RBC) [Ratio] 11.9 % Normal 11.6-14.6 [facility] Comment on above: Performed By: #### L 501.9985, L500.4100, L501.9520, L100.0100, L506.1001, L500.4050 #### [facility] [address] [place], [address] Hematocrit (Bld) [Volume fraction] 46.1 % Normal 40-54 [facility] Comment on above: Performed By: #### L 501.9985, L500.4100, L501.9520, L100.0100, L506.1001, L500.4050 #### [facility] [address] [place], [address] Hemoglobin (Bld) [Mass/Vol] 16.0 g/dL Normal 13.0-16.5 [facility] Comment on above: Performed By: #### L 501.9985, L500.4100, L501.9520, L100.0100, L506.1001, L500.4050 #### [facility] [address] [place], [address] IG% 0.300 Normal 0.0-0.9 [facility] Comment on above: Result Comment: IG% - Immature Granulocytes (promyelocytes, myelocytes and metamyelocytes) > 1% indicates that a LEFT SHIFT is Present. Performed By: #### L 501.9985, L500.4100, L501.9520, L100.0100, L506.1001, L500.4050 #### [facility] [address] [place], [address] Lymphocytes/100 WBC (Bld) 29.7 % Normal 19-41 [facility] Comment on above: Performed By: #### L 501.9985, L500.4100, L501.9520, L100.0100, L506.1001, L500.4050 #### [facility] [address] [place], [address] MCH (RBC) [Entitic mass] 33.4 pg High 27.0-32.0 [facility] Comment on above: Performed By: #### L 501.9985, L500.4100, L501.9520, L100.0100, L506.1001, L500.4050 #### [facility] [address] [place], [address] MCHC (RBC) [Mass/Vol] 34.7 g/dL Normal 32-36 [facility] Comment on above: Performed By: #### L 501.9985, L500.4100, L501.9520, L100.0100, L506.1001, L500.4050 #### [facility] [address] [place], [address] MCV (RBC) [Entitic vol] 96.2 fL High 80-94 [facility] Comment on above: Performed By: #### L 501.9985, L500.4100, L501.9520, L100.0100, L506.1001, L500.4050 #### [facility] [address] [place], [address] Monocytes/100 WBC (Bld) 7.3 % Normal 0-10 [facility] Comment on above: Performed By: #### L 501.9985, L500.4100, L501.9520, L100.0100, L506.1001, L500.4050 #### [facility] [address] [place], [address] Neutrophils/100 WBC (Bld) 57.9 % Normal 47-70 [facility] Comment on above: Performed By: #### L 501.9985, L500.4100, L501.9520, L100.0100, L506.1001, L500.4050 #### [facility] [address] [place], [address] Nucleated RBC (Bld) [#/Vol] 0 10*3/uL Normal 0-5 [facility] Comment on above: Performed By: #### L 501.9985, L500.4100, L501.9520, L100.0100, L506.1001, L500.4050 #### [facility] [address] [place], [address] Platelet mean volume (Bld) [Entitic vol] 9.5 fL Normal 6.2-12.0 [facility] Comment on above: Performed By: #### L 501.9985, L500.4100, L501.9520, L100.0100, L506.1001, L500.4050 #### [facility] [address] [place], [address] Platelets (Bld) [#/Vol] 257 10*3/uL Normal 150-450 [facility] Comment on above: Performed By: #### L 501.9985, L500.4100, L501.9520, L100.0100, L506.1001, L500.4050 #### [facility] [address] [place], [address] RBC (Bld) [#/Vol] 4.79 10*6/uL Normal 4.6-6.2 [facility] Comment on above: Performed By: #### L 501.9985, L500.4100, L501.9520, L100.0100, L506.1001, L500.4050 #### [facility] [address] [place], [address] RDW SD 42.5 fl Normal 35.1-43.9 [facility] Comment on above: Performed By: #### L 501.9985, L500.4100, L501.9520, L100.0100, L506.1001, L500.4050 #### [facility] [address] [place], [address] WBC (Bld) [#/Vol] 9.2 10*3/uL Normal 4.4-11.0 [facility] Comment on above: Performed By: #### L 501.9985, L500.4100, L501.9520, L100.0100, L506.1001, L500.4050 #### [facility] [address] [place], [address] Calculated very low density lipoprotein (VLDL) cholesterol measurementOrdered By: Keren Ma on 09-19-2024 Calculated very low density lipoprotein (VLDL) cholesterol measurement 173 mg/dL High 5-40 [facility] Carbon dioxide, total [Moles /volume] in Central venous bloodOrdered By: Keren Ma on 09-19-2024 CO2 [Moles/Vol] 23.8 mmol/L 21.0-32.0 [facility] Chloride assayOrdered By: Miladis Ma on 09-19-2024 Chloride [Moles/Vol] 101 mmol/L 98-108 [facility] Comprehensive Metabolic Prof ilon 09-19-2024 Albumin [Mass/Vol] 4.3 g/dL Normal 3.4-4.8 [facility] Comment on above: Performed By: #### L 501.9985, L500.4100, L501.9520, L100.0100, L506.1001, L500.4050 #### [facility] [address] [place], [address] Albumin/Globulin [Mass ratio] 1.3 {ratio} Normal 0.9-2.4 [facility] Comment on above: Performed By: #### L 501.9985, L500.4100, L501.9520, L100.0100, L506.1001, L500.4050 #### [facility] [address] [place], [address] ALK PHOS 102 U/L Normal 40-129 [facility] Comment on above: Performed By: #### L 501.9985, L500.4100, L501.9520, L100.0100, L506.1001, L500.4050 #### [facility] [address] [place], [address] ALT [Catalytic activity/Vol] 28 U/L Normal <=46 [facility] Comment on above: Performed By: #### L 501.9985, L500.4100, L501.9520, L100.0100, L506.1001, L500.4050 #### [facility] [address] [place], [address] AST [Catalytic activity/Vol] 27 U/L Normal <=37 [facility] Comment on above: Result Comment: Hemo lysis present, Results??could be affected. ?? Performed By: #### L 501.9985, L500.4100, L501.9520, L100.0100, L506.1001, L500.4050 #### [facility] [address] [place], [address] Bilirubin [Mass/Vol] 0.24 mg/dL Normal 0.00-1.30 [facility] Comment on above: Performed By: #### L 501.9985, L500.4100, L501.9520, L100.0100, L506.1001, L500.4050 #### [facility] [address] [place], [address] BUN/CRE 22.9 RATIO High 10-20 [facility] Comment on above: Performed By: #### L 501.9985, L500.4100, L501.9520, L100.0100, L506.1001, L500.4050 #### [facility] [address] [place], [address] Calcium [Mass/Vol] 8.9 mg/dL Normal 7.6-11.0 [facility] Comment on above: Performed By: #### L 501.9985, L500.4100, L501.9520, L100.0100, L506.1001, L500.4050 #### [facility] [address] [place], [address] Chloride [Moles/Vol] 101 mmol/L Normal 98-108 [facility] Comment on above: Performed By: #### L 501.9985, L500.4100, L501.9520, L100.0100, L506.1001, L500.4050 #### [facility] [address] [place], [address] CO2 [Moles/Vol] 23.8 mmol/L Normal 21.0-32.0 [facility] Comment on above: Performed By: #### L 501.9985, L500.4100, L501.9520, L100.0100, L506.1001, L500.4050 #### [facility] [address] [place], [address] Creatinine [Mass/Vol] 0.76 mg/dL Normal 0.70-1.20 [facility] Comment on above: Performed By: #### L 501.9985, L500.4100, L501.9520, L100.0100, L506.1001, L500.4050 #### [facility] [address] [place], [address] GAP 13 Normal 5-15 [facility] Comment on above: Performed By: #### L 501.9985, L500.4100, L501.9520, L100.0100, L506.1001, L500.4050 #### [facility] [address] [place], [address] GFR/1.73 sq M.predicted among non-blacks MDRD (S/P/Bld) [Vol rate/Area] 101 mL/min/{1.73_m2} Normal >60 [facility] Comment on above: Result Comment: mL/m in/1.73m2 CKD-EPI Creatinine Equation (2020) Performed By: #### L 501.9985, L500.4100, L501.9520, L100.0100, L506.1001, L500.4050 #### [facility] [address] [place], [address] Globulin (S) [Mass/Vol] 3.2 g/dL Normal 2.2-4.2 [facility] Comment on above: Performed By: #### L 501.9985, L500.4100, L501.9520, L100.0100, L506.1001, L500.4050 #### [facility] [address] [place], [address] Glucose [Mass/Vol] 126 mg/dL High 70-99 [facility] Comment on above: Performed By: #### L 501.9985, L500.4100, L501.9520, L100.0100, L506.1001, L500.4050 #### [facility] [address] [place], [address] Potassium [Moles/Vol] 4.0 mmol/L Normal 3.3-5.1 [facility] Comment on above: Result Comment: Hemo lysis present, Results??could be affected. ?? Performed By: #### L 501.9985, L500.4100, L501.9520, L100.0100, L506.1001, L500.4050 #### [facility] [address] [place], [address] Sodium [Moles/Vol] 138 mmol/L Normal 133-145 [facility] Comment on above: Performed By: #### L 501.9985, L500.4100, L501.9520, L100.0100, L506.1001, L500.4050 #### [facility] [address] [place], [address] T PROT 7.5 g/dL Normal 5.9-8.4 [facility] Comment on above: Performed By: #### L 501.9985, L500.4100, L501.9520, L100.0100, L506.1001, L500.4050 #### [facility] [address] [place], [address] Urea nitrogen [Mass/Vol] 17 mg/dL Normal 4-19 [facility] Comment on above: Performed By: #### L 501.9985, L500.4100, L501.9520, L100.0100, L506.1001, L500.4050 #### [facility] [address] [place], [place], [id number] Eosinophil percentageOrdered By: Keren Anil on 09-19-2024 Eosinophils/100 WBC (Bld) 4.3 % 0-5 [facility] Erythrocyte distribution wid th ratioOrdered By: Keren Anil on 09-19-2024 Erythrocyte distribution width (RBC) [Ratio] 11.9 % 11.6-14.6 [facility] Erythrocyte distribution wid th standard deviationOrdered By: [facility] Anil on 09-19-2024 Erythrocyte distribution width (RBC) [Ratio] 42.5 fl 35.1-43.9 [facility] Glomerular filtration rate ( GFR) estimation/1.73 sq m using serum, plasma, or whole bOrdered By: Kerenmarilyn Ma on 09-19-2024 GFR/1.73 sq M.predicted among non-blacks MDRD (S/P/Bld) [Vol rate/Area] 101 mL/min/{1.73_m2} >60 [facility] Comment on above: mL/min/1.73m2 CKD-EP I Creatinine Equation (2020) Hematocrit Auto (Bld) [Volum e fraction]Ordered By: Kerenmarilyn Ma on 09-19-2024 Hematocrit (Bld) [Volume fraction] 46.1 % 40-54 [facility] Hemoglobin A1con 09-19-2024 HbA1c (Bld) [Mass fraction] 7.1 % High <=5.6 [facility] Comment on above: Result Comment: Norm al < 5.7 % Prediabetic 5.7 - 6.4 % Diabetic >or= 6.5 % Please note range changes. Performed By: #### L 501.9985, L500.4100, L501.9520, L100.0100, L506.1001, L500.4050 #### [facility] [address] [place], [place], [id number] Hemoglobin A1c percentageOrd ered By: Keren Ma on 09-19-2024 HbA1c (Bld) [Mass fraction] 7.1 % High <5.7 [facility] Comment on above: Normal < 5.7 % Predi abetic 5.7 - 6.4 % Diabetic >or= 6.5 % Please note range changes. Hemoglobin measurementOrdere d By: Keren Ma on 09-19-2024 Hemoglobin (Bld) [Mass/Vol] 16.0 g/dL 13.0-16.5 [facility] Immature granulocytes/100 WB C Auto (Bld)Ordered By: Keren Ma on 09-19-2024 Immature granulocytes/100 WBC (Bld) 0.300 % 0.0-0.9 [facility] Comment on above: IG% - Immature Granu locytes (promyelocytes, myelocytes and metamyelocytes) > 1% indicates that a LEFT SHIFT is Present. LDL calc ser/plasOrdered By: Keren Ma on 09-19-2024 Cholesterol in LDL [Mass/Vol] 44 mg/dL [facility] Comment on above: Getasurnaa=452-939 m g/dL & Higher Dezo=476 mg/dL or greater Laboratory - Chemistry and C hemistry - challengeOrdered By: Keren Ma on 09-19-2024 AST [Catalytic activity/Vol] 27 U/L <38 [facility] Comment on above: Hemolysis present, R esults could be affected. Lipid Profileon 09-19-2024 CHOL:HDL 9.80 Normal [facility] Comment on above: Performed By: #### L 501.9985, L500.4100, L501.9520, L100.0100, L506.1001, L500.4050 #### [facility] [address] [place], [address] Cholesterol [Mass/Vol] 241 mg/dL High <=200 [facility] Comment on above: Result Comment: Chol esterol level, Desirable <200 mg/dL Borderline high cholesterol 200-239 mg/dL High cholesterol >=240 mg/dL Recommendations of the NCEP Adult Treatment Panel for the following risk-cutoff thresholds for the [place] population. Performed By: #### L 501.9985, L500.4100, L501.9520, L100.0100, L506.1001, L500.4050 #### [facility] [address] [place], [address] Cholesterol in HDL [Mass/Vol] 25 mg/dL Low [facility] Comment on above: Result Comment: [place] on[place] Cholesterol Education Program (NCEP) guidelines: <40 mg/dL: Low HDL-cholesterol (major risk factor for CHD) >= 60 mg/dL: High HDL-cholesterol (negative risk factor for CHD) HDL-cholesterol is affected by a number of factors, e.g. smoking, exercise, hormones, sex and age. Performed By: #### L 501.9985, L500.4100, L501.9520, L100.0100, L506.1001, L500.4050 #### [facility] [address] [place], [address] Cholesterol in LDL [Mass/Vol] 44 mg/dL Normal [facility] Comment on above: Result Comment: Bord tfxnvv=380-593 mg/dL Higher Yleg=761 mg/dL or greater Performed By: #### L 501.9985, L500.4100, L501.9520, L100.0100, L506.1001, L500.4050 #### [facility] [address] [place], [address] Cholesterol in VLDL [Mass/Vol] 173 mg/dL High 5-40 [facility] Comment on above: Performed By: #### L 501.9985, L500.4100, L501.9520, L100.0100, L506.1001, L500.4050 #### [facility] [address] [place], [address] Triglyceride [Mass/Vol] 864 mg/dL High [facility] Comment on above: Result Comment: The drugs N-Acetylcysteine and Metamizole may falsely depress this assay. Normal range: <150 mg/dL Borderline High: 150-199 mg/dL High: 200-499 mg/dL Very High: >500 mg/dL Performed By: #### L 501.9985, L500.4100, L501.9520, L100.0100, L506.1001, L500.4050 #### [facility] [place], [address] MCV (mean corpuscular volume ) determinationOrdered By: Keren Ma on 09-19-2024 MCV (RBC) [Entitic vol] 96.2 fL High 80-94 [facility] Mean corpuscular hemoglobin (MCH) determinationOrdered By: Keren Ma on 09-19-2024 MCH (RBC) [Entitic mass] 33.4 pg High 27.0-32.0 [facility] Mean corpuscular hemoglobin concentration (MCHC) determinationOrdered By: Keren Ma on 09-19-2024 MCHC (RBC) [Mass/Vol] 34.7 g/dL 32-36 [facility] Mean platelet volume determi nationOrdered By: Keren Ma on 09-19-2024 Platelet mean volume (Bld) [Entitic vol] 9.5 fL 6.2-12.0 [facility] Monocyte percentageOrdered B y: Keren Ma on 09-19-2024 Monocytes/100 WBC (Bld) 7.3 % 0-10 [facility] Neutrophil percentageOrdered By: Keren Ma on 09-19-2024 Neutrophils/100 WBC (Bld) 57.9 % 47-70 [facility] Nucleated red blood cell per centageOrdered By: Keren Ma on 09-19-2024 Nucleated RBC/100 WBC (Bld) [Ratio] 0 % 0-5 [facility] Platelet countOrdered By: Miladis Ma on 09-19-2024 Platelets (Bld) [#/Vol] 257 10*3/uL 150-450 [facility] Potassium measurement (mass/ volume)Ordered By: Keren Ma on 09-19-2024 Potassium (Unsp spec) [Mass/Vol] 4.0 mmol/L 3.3-5.1 [facility] Comment on above: Hemolysis present, R esults could be affected. RBC Auto (Bld) [#/Vol]Ordere d By: Keren Ma on 09-19-2024 RBC (Bld) [#/Vol] 4.79 10*6/uL 4.6-6.2 [facility] Screening total cholesterol/ high density lipoprotein (HDL) cholesterol ratioOrdered By: Keren Ma on 09-19-2024 Cholesterol.total/Choles terol in HDL [Mass ratio] 9.80 {ratio} [facility] Serum creatinine measurement (mass/volume)Ordered By: Keren Ma on 09-19-2024 Creatinine [Mass/Vol] 0.76 mg/dL 0.70-1.20 [facility] Serum globulin measurementOr dered By: Keren Ma on 09-19-2024 Globulin (S) [Mass/Vol] 3.2 g/dL 2.2-4.2 [facility] Serum glucose measurement (m ass/volume)Ordered By: Keren Ma on 09-19-2024 Glucose [Mass/Vol] 126 mg/dL High 70-99 [facility] Serum or plasma alanine muniz otransferase (ALT) measurementOrdered By: Keren Ma on 09-19-2024 ALT [Catalytic activity/Vol] 28 U/L <47 [facility] Serum or plasma albumin chiki urement (mass/volume)Ordered By: Keren Ma on 09-19-2024 Albumin [Mass/Vol] 4.3 g/dL 3.4-4.8 [facility] Serum or plasma albumin/glob ulin mass ratioOrdered By: Keren Ma on 09-19-2024 Albumin/Globulin [Mass ratio] 1.3 {ratio} 0.9-2.4 [facility] Serum or plasma alkaline german sphatase measurementOrdered By: Keren Ma on 09-19-2024 ALP [Catalytic activity/Vol] 102 U/L 40-129 [facility] Serum or plasma calcium chiki urement (mass/volume)Ordered By: Keren Ma on 09-19-2024 Calcium [Mass/Vol] 8.9 mg/dL 7.6-11.0 [facility] Serum or plasma cholesterol in HDL measurement (mass/volume)Ordered By: Keren Ma on 09-19-2024 Cholesterol in HDL [Mass/Vol] 25 mg/dL Low >40 [facility] Comment on above: National Cholesterol Education Program (NCEP) guidelines:<40 mg/dL: Low HDL-cholesterol (major risk factor for CHD)>= 60 mg/dL: High HDL-cholesterol (negative risk factor for CHD)HDL-cholesterol is affected by a number of factors, e.g. smoking, exercise, hormones, sex and age. Serum or plasma cholesterol measurement (mass/volume)Ordered By: Keren Ma on 09-19-2024 Cholesterol [Mass/Vol] 241 mg/dL High <201 [facility] Comment on above: Cholesterol level, D esirable <200 mg/dLBorderline high cholesterol 200-239 mg/dLHigh cholesterol >=240 mg/dLRecommendations of the NCEP Adult Treatment Panel for the following risk-cutoff thresholds for the [place] population. Serum or plasma urea nitroge n measurement (mass/volume)Ordered By: Keren Ma on 09-19-2024 Urea nitrogen [Mass/Vol] 17 mg/dL 4-19 [facility] Sodium levelOrdered By: Elisabet Ma on 09-19-2024 Sodium [Moles/Vol] 138 mmol/L 133-145 [facility] TSH DL <= 0.005 mIU/L QnOrde red By: Keren Ma on 09-19-2024 TSH Qn 0.992 uIU/mL 0.300-4.200 [facility] Thyroid Stim Hormone (TSH)on 09-19-2024 TSH 0.992 uIU/mL Normal 0.300-4.200 [facility] Comment on above: Performed By: #### L 501.9985, L500.4100, L501.9520, L100.0100, L506.1001, L500.4050 #### [facility] [address] [place], [address] Total proteinOrdered By: Ele Ma on 09-19-2024 Protein [Mass/Vol] 7.5 g/dL 5.9-8.4 [facility] Triglycerides measurementOrd ered By: Keren Ma on 09-19-2024 Triglyceride [Mass/Vol] 864 mg/dL High <199 [facility] Comment on above: The drugs N-Acetylcy steine and Metamizole may falsely depress this assay. Normal range: <150 mg/dLBorderline High: 150-199 mg/dLHigh: 200-499 mg/dLVery High: >500 mg/dL Vitamin D,25 Hydroxyon 09-19 Vitamin D 25-OH 21.5 ng/mL Low 30-100 [facility] Comment on above: Result Comment: Rachael min D Status Deficiency: <20 ng/mL (50nmol/L) Insufficiency: 20-30 ng/mL (50-75 nmol/L) Sufficiency: 30-100 ng/mL (75-250 nmol/L) Toxicity: >100 ng/mL (>250 nmol/L) Performed By: #### L 501.9985, L500.4100, L501.9520, L100.0100, L506.1001, L500.4050 ####[facility] [id number] [place], [address] White blood cell (WBC) count Ordered By: Keren Ma on 09-19-2024 WBC (Bld) [#/Vol] 9.2 10*3/uL 4.4-11.0 [facility] MR/Imer 08-12-2024 /[facility] [address] [place] [address] OFFICE VISIT Date of Service: 08/12/24 MR#: [id number] Acct: [id number] Name: GIAN CARBALLO Rep #: [id number] : 1960 Provider: Dr. Keren glass MD Age/Sex: 63/M Location: [facility] Status: Signed Intake Vital Signs 03/25/24 11:03 08/12/24 13:09 Height 5 ft 8 in 5 ft 8 in Weight: 205 lb 6 oz 210 lb BMI 31.2 31.9 BP 138/82 H 150/81 H Blood Pressure Location Lt brachial Lt brachial Position Sitting Sitting Respiration 16 16 Pulse 99 92 Pulse Source Monitor Monitor Temp 98.7 F 98.4 F Temp Source Temporal Temporal Pulse Oximetry (%) 97 94 Oxygen Delivery Method room air room air Intake Visit Reasons: Discuss Medication Chief Complaint: Discuss Medication Fitness Director Required: No Accompanied by: Self Is patient in pain?: No Allergies No Known Allergies Allergy (Verified 08/12/24 13:03) Medications ???Medication ???Instructions ???Recorded ???Confirmed ???Type amlodipine 10 mg-benazepril 40 mg 1 cap PO DAILY #90 caps 07/17/24 08/12/24 Rx capsule (Lotrel) hydrochlorothiazide 12.5 mg capsule 12.5 mg PO DAILY #90 caps 07/1708/12/24 Rx metformin 1,000 mg tablet 1,000 mg PO BID #180 tabs 07/17/24 08/12/24 Rx pravastatin 40 mg tablet 40 mg PO QHS #90 tabs 07/17/2411/29 Rx dulaglutide 0.75 mg/0.5 mL 0.75 mg (0.5 mL) subcut QWEEK #2 m L 08/12/24 08/12/24 Rx subcutaneous pen injector (Trulicity) [facility] Medical History Cataract Umbilical hernia Family History Other Diabetes Hypertension Social History Smoking Status: Former smoker alcohol intake: never substance use type: does not use HPI HPI Chief Complaint: Discuss Medication Details: GIAN CARBALLO, is a 63 M who presents to the office today for a brief office visit follow-up to discuss diabetes medication options. Patient has a history of type 2 diabetes, fairly long-term. He is also hypertensive on amlodipine???BenzePrO 10???4 daily, and he is taking pravastatin 40 mg nightly for primary prevention. In terms of diabetes he is on metformin 1000 mg p.o. twice daily and has been on longstanding alogliptin. Turns out that his insurance company has elected to not cover alogliptin any longer. Which is somewhat frustrating as he has been well-controlled on his current regimen. In any event, we discussed in some detail the various groups of medications including sulfonylureas, SGLT2 inhibitors, GLP-1 agonists, and others. Ultimately, looking at the various side effect profiles, and overall situation, we decided to switch from alogliptin over to an SGLT2 inhibitor. Review of systems per chart. Physical exam. Vital signs on chart. I have not performed any significant physical examination today. See my previous note for exam. This was a visit to review/discuss medication change due to insurance no longer covering his current regimen ROS Const Constitutional: No body ache, chills, excessive sweating, fatigue, fever(s), frequent falls, headache(s), snoring, weakness or change in appetite Eyes Eyes: No blurry vision, change in vision, eye pain or Light sensitivity ENT ENT: No abnormal hearing, ear or mastoid pain, tinnitus, nasal congestion, headache(s), neck pain or sore throat Resp Respiratory: No cough, shortness of breath, snoring or wheezing Cardio Cardiology: No chest pain at rest, chest pain with exertion, excessive sweating, dyspnea on exertion, lightheadedness, orthopnea or palpitations Gastro GI: No abdominal pain, change in bowel habits, constipation, cramping, diarrhea, nausea/dyspepsia or vomiting Genitourinary Male: No burning urination, painful urination, urinary incontinence or urinary frequency Musc Musculoskeletal: No abnormal gait, joint pain, back pain, limited range of motion, muscle weakness, neck pain or numbness Skin Skin: No dry skin, redness, lesions, itchy eyes, rash or wounds Neuro Neurology: No abnormal gait, abnormal hearing, weakness, frequent falls, headache(s), memory loss or numbness Psych Psychiatric: No anxiety, No change in appetite, No depression, No memory loss and No Thoughts of harming yourself/Others Endo Endocrine: No cold intolerance, excessive sweating, fatigue, flushing, heat intolerance, increased thirst/drinking or increased hunger Aller/Imm Allergy/Immunologic: No itchy eyes, seasonal allergy symptoms, hives or wheezing Tom/Lymp Hematologic/Lymphatic: No easy bleeding or easy bruising Coding Level of Care Code Off vis,est,level 3 Diagnoses Insulin resistance E88.81 DM w/o complication type II E11.9 Essential (more content not included)... Normal [facility] MR/Imer 03-25-2024 MR/[facility] [address] [place] [address] OFFICE VISIT Date of Service: 03/25/24 MR#: [id number] Acct: [id number] Name: GIAN CARBALLO Rep #: [id number] : 1960 Provider: Dr. Keren glass MD Age/Sex: 63/M Location[place] [facility] Status: Signed Intake Vital Signs 11/20/23 11:09 03/25/24 11:03 Height 5 ft 8 in 5 ft 8 in Weight: 210 lb 8 oz 205 lb 6 oz BMI 32.0 31.2 BP 131/81 H 138/82 H Blood Pressure Location Lt brachial Lt brachial Position Sitting Sitting Respiration 16 16 Pulse 95 99 Pulse Source Monitor Monitor Temp 98.6 F 98.7 F Temp Source Temporal Temporal Pulse Oximetry (%) 97 Oxygen Delivery Method room air Intake Visit Reasons: 4 M FU Chief Complaint: 4 m fu Fitness Director Required: No Accompanied by: Self Is patient in pain?: No Allergies No Known Allergies Allergy (Verified 03/25/24 10:58) Medications ???Medication ???Instructions ???Recorded ???Confirmed ???Type metformin 1,000 mg tablet 1,000 mg PO BID #180 tabs 08/14/23 03/25/24 Rx amlodipine 10 mg-benazepril 40 mg 1 cap PO DAILY #90 caps 09/04/23 03/25/24 Rx capsule (Lotrel) pravastatin 40 mg tablet 40 mg PO QHS #90 tabs 09/04/23 03/25/24 Rx hydrochlorothiazide 12.5 mg capsule 12.5 mg PO DAILY #90 caps 01/12/24 03/25/24 Rx alogliptin 25 mg tablet 25 mg PO DAILY #90 tabs 02/12/24 03/25/24 Rx PFSH Medical History Cataract Umbilical hernia Family History Other Diabetes Hypertension Social History Smoking Status: Former smoker alcohol intake: never substance use type: does not use HPI HPI Chief Complaint: 4 m fu Details: GIAN CARBALLO, is a 63 M who presents to the office today for 6-month follow-up. 63-year-old history of hypertension, hyperlipidemia, type 2 diabetes. He is stable on alogliptin 25 mg and metformin 1000 mg p.o. twice daily. His A1c recently was 6.3. That is up just a little bit from his last but still quite good. He has hypertension on amlodipine???benazepri l. In addition he is on low-dose HCTZ. Blood pressures have generally been well-maintained. He states are little bit high today, likely due to his stress. Hyperlipidemia, stable on current regimen although he does tend to carry a low HDL which has been bothersome. Generally speaking over the last few years, he has been trying to do better diet delgado. Eating more fish, fruits and vegetables than he had in the past which probably accounts for why his HDL has been gradually improving. Under increasing levels of stress. 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 She is in her mid 80s. She likely has dementia by description. She has had numerous recent falls. She was recently in the hospital, now back home. He does most of the meals for her, visits daily. He lives about 5 miles away unfortunately however. Review of systems per chart. Physical exam. Vital signs on chart. Left intraocular lens replacement. PERRLA. Sclera are clear. TMs are unremarkable with normal light reflexes. Canals are unremarkable. Posterior pharynx is unremarkable. No cervical or supraclavicular lymph nodes enlarged or tender. No clear thyromegaly. No thyroid nodules readily palpable. Lungs are without wheeze, rhonchi, rales. No E/A changes are heard. Heart is regular. Not tachycardic. No clear murmur, rub, or gallop is identified. The abdomen is soft. Bowel sounds are present. No significant leg edema. Cranial nerve examination 2 through 12 are grossly unremarkable nonlateralizing. Deep tendon reflexes are 2/4 and symmetric at the bicep, tricep, Achilles, patella. No ankle clonus. ROS Const Constitutional: No body ache, chills, excessive sweating, fatigue, fever(s), frequent falls, headache(s), snoring, weakness or change in appetite Eyes Eyes: No blurry vision, change in vision, eye pain or Light sensitivity ENT ENT: No abnormal hearing, ear or mastoid pain, tinnitus, nasal congestion, headache(s), neck pain or sore throat Resp Respiratory: No cough, shortness of breath, snoring or wheezing Cardio Cardiology: No chest pain at rest, chest pain with exertion, excessive sweating, dyspnea on exertion, lightheadedness, orthopnea or palpitations Gastro GI: No abdominal pain, change in bowel habits, constipation, cramping, diarrhea, nausea/dyspepsia or vomiting Genitourinary Male: No burning urination, painful urination, urinary incontinence or urinary frequency Musc Musculoskeletal: No abnormal gait, joint pain, back pain, limited range of motion, muscle weakness, neck pain or numbness Skin Skin: No dry skin, redness, lesions, itchy eyes, rash or wounds Neuro Neurology: No abn (more content not included)... Normal [facility] Comprehensive Metabolic Prof ilon 03-20-2024 Albumin [Mass/Vol] 3.8 g/dL Normal 3.2-5.0 [facility] Comment on above: Performed By: #### L 501.5200, L501.9985, L500.4100, L500.4050 ####[facility] [address] [place], [address] Albumin/Globulin [Mass ratio] 1.0 {ratio} Normal 0.9-2.4 [facility] Comment on above: Performed By: #### L 501.5200, [id number], L500.4100, L500.4050 ####[facility] [address] [place], [address] ALK P 88 U/L Normal 45-117 [facility] Comment on above: Performed By: #### L 501.5200, [id number], L500.4100, L500.4050 ####[facility] [address] [place], [address] ALT [Catalytic activity/Vol] 29 U/L Normal 16-61 [facility] Comment on above: Performed By: #### L 501.5200, [id number], L500.4100, L500.4050 ####[facility] [address] [place], [address] AST [Catalytic activity/Vol] 24 U/L Normal 15-37 [facility] Comment on above: Performed By: #### L 501.5200, [id number], L500.4100, L500.4050 ####[facility] [address] [place], [address] Bilirubin [Mass/Vol] 0.60 mg/dL Normal 0.20-1.00 [facility] Comment on above: Result Comment: For patients on eltrombopag therapy, use of Dimension Bryan TBIL is not recommended. Performed By: #### L 501.5200, [id number], L500.4100, L500.4050 ####[facility] [address] [place], [address] BUN/CRE 17.5 RATIO Normal 10-20 [facility] Comment on above: Performed By: #### L 501.5200, [id number], L500.4100, L500.4050 ####[facility] [address] [place], [address] CA,Total 9.2 mg/dL Normal 8.5-10.1 [facility] Comment on above: Performed By: #### L 501.5200, [id number], L500.4100, L500.4050 ####[facility] [address] [place], [address] Chloride [Moles/Vol] 104 mmol/L Normal 98-107 [facility] Comment on above: Performed By: #### L 501.5200, [id number], L500.4100, L500.4050 ####[facility] [address] [place], [address] CO2 [Moles/Vol] 30.0 mmol/L Normal 21.0-32.0 [facility] Comment on above: Performed By: #### L 501.5200, [id number], L500.4100, L500.4050 ####[facility] [address] [place], [address] Creatinine [Mass/Vol] 0.92 mg/dL Normal 0.70-1.30 [facility] Comment on above: Result Comment: The validity of the calculated GFR GFRAA in patients over 70 years has not been determined. Clinical correlation is essential. Performed By: #### L 501.5200, [id number], L500.4100, L500.4050 ####[facility] [address] [place], [address] EST GFR - AA 107 mL/min Normal >60 [facility] Comment on above: Result Comment: Afri can Lao GFR Calc Performed By: #### L 501.5200, [id number], L500.4100, L500.4050 ####[facility] [address] [place], [address] GAP 4 Low 5-15 [facility] Comment on above: Performed By: #### L 501.5200, [id number], L500.4100, L500.4050 ####[facility] [address] [place], [address] GFR/1.73 sq M.predicted among non-blacks MDRD (S/P/Bld) [Vol rate/Area] 89 mL/min/{1.73_m2} Normal >60 [facility] Comment on above: Result Comment: Non- GFR Calc Performed By: #### L 501.5200, L501.9985, L500.4100, L500.4050 ####[facility] [address] [place], [address] Globulin (S) [Mass/Vol] 4.0 g/dL Normal 2.2-4.2 [facility] Comment on above: Performed By: #### L 501.5200, [id number], L500.4100, L500.4050 ####[facility] [address] [place], [address] Glucose [Mass/Vol] 164 mg/dL High 74-106 [facility] Comment on above: Result Comment: Fast ing Glucose result greater than or equal to 126 mg/dL suggests DIABETES MELLITUS per A.D.A. criteria. Performed By: #### L 501.5200, [id number], L500.4100, L500.4050 ####[facility] [address] [place], [address] Potassium [Moles/Vol] 4.3 mmol/L Normal 3.5-5.1 [facility] Comment on above: Performed By: #### L 501.5200, [id number], L500.4100, L500.4050 ####[facility] [address] [place], [address] Sodium [Moles/Vol] 138 mmol/L Normal 136-145 [facility] Comment on above: Performed By: #### L 501.5200, [id number], L500.4100, L500.4050 ####[facility] [address] [place], [address] T PROT 7.8 g/dL Normal 6.4-8.2 [facility] Comment on above: Performed By: #### L 501.5200, [id number], L500.4100, L500.4050 ####[facility] [address] [place], [address] Urea nitrogen [Mass/Vol] 16 mg/dL Normal 7-18 [facility] Comment on above: Performed By: #### L 501.5200, [id number], L500.4100, L500.4050 ####[facility] [address] [place], [address] Hemoglobin A1con 03-20-2024 HbA1c (Bld) [Mass fraction] 6.3 % High 3.8-5.6 [facility] Comment on above: Result Comment: Norm al < 5.7 % Prediabetic 5.7 - 6.4 % Diabetic >or= 6.5 % Please note range changes. Performed By: #### L 501.5200, [id number], L500.4100, L500.4050 ####[facility] [address] [place], [address] Lipid Profileon 03-20-2024 Cholesterol [Mass/Vol] 184 mg/dL Normal 200 [facility] Comment on above: Result Comment: <200 mg/dL Desirable 200-240 mg/dL Borderline >240 mg/dL High Risk Performed By: #### L 501.5200, L501.9985, L500.4100, L500.4050 ####[facility] [address] [place], [address] Cholesterol in HDL [Mass/Vol] 33 mg/dL Low [facility] Comment on above: Result Comment: The drugs N-Acetylcysteine and Metamizole may falsely depress this assay. Reference Range HDL <40 mg/dL Low HDL Cholesterol HDL >or= 60 mg/dL High HDL Cholesterol Performed By: #### L 501.5200, L501.9985, L500.4100, L500.4050 ####[facility] [address] [place], [address] Cholesterol in LDL [Mass/Vol] 105 mg/dL Normal 0-130 [facility] Comment on above: Performed By: #### L 501.5200, [id number], L500.4100, L500.4050 ####[facility] [address] [place], [address] Cholesterol in VLDL [Mass/Vol] 46 mg/dL High 5-40 [facility] Comment on above: Performed By: #### L 501.5200, [id number], L500.4100, L500.4050 ####[facility] [address] [place], [address] Triglyceride [Mass/Vol] 231 mg/dL High [facility] Comment on above: Result Comment: The drugs N-Acetylcysteine and Metamizole may falsely depress this assay. Serum Triglycerides Reference Interval Normal <150 mg/dL Borderline high 150 - 199 mg/dL High 200 - 499 mg/dL Very High > or = 500 mg/dL Performed By: #### L 501.5200, L501.9985, L500.4100, L500.4050 ####[facility] [address] [place], [address] Magnesiumon 03-20-2024 Magnesium [Mass/Vol] 2.0 mg/dL Normal 1.6-2.6 [facility] Comment on above: Performed By: #### L 501.5200, [id number], L500.4100, L500.4050 ####[facility] [address] [place], [address] Basophil percentageOrdered B y: Keren Ma on 11-10-2022 Bilirubin [Mass/Vol] 0.50 mg/dL 0.20-1.00 [facility] Comment on above: For patients on eltr ombopag therapy, use of Dimension Bryan TBIL is not recommended. Chloride [Moles/Vol] 104 mmol/L 98-107 [facility] Glucose [Mass/Vol] 186 mg/dL 74-106 [facility] Comment on above: Fasting Glucose resu lt greater than or equal to 126 mg/dL suggests DIABETES MELLITUS per A.D.A. criteria. Potassium [Moles/Vol] 4.0 mmol/L 3.5-5.1 [facility] Protein [Mass/Vol] 7.7 g/dL 6.4-8.2 [facility] Sodium [Moles/Vol] 137 mmol/L 136-145 [facility] Laboratory - Chemistry and C hemistry - challengeOrdered By: Keren Ma on 11-10-2022 ALP [Catalytic activity/Vol] 98 U/L 45-117 [facility] ALT [Catalytic activity/Vol] 35 U/L 16-61 [facility] CO2 [Moles/Vol] 28.0 mmol/L 21.0-32.0 [facility] Globulin (S) [Mass/Vol] 3.9 g/dL 2.2-4.2 [facility] Urea nitrogen/Creatinine [Mass ratio] 13.3 mg/mg 10-20 [facility] No Panel InformationOrdered By: Keren Ma on 11-10-2022 Estimated GFR (MDRD) Amer 100 mL/min >60 [facility] Comment on above: GFR Calc Estimated GFR (MDRD) Non-Af Amer 83 mL/min >60 [facility] Comment on above: Non- GFR Calc Insulin Level 34.3 mU/L 2.6-37.6 [facility] Serum or plasma albumin chiki urement (mass/volume)Ordered By: Keren Ma on 11-10-2022 Albumin [Mass/Vol] 3.8 g/dL 3.2-5.0 [facility] Serum or plasma albumin/glob ulin mass ratioOrdered By: Keren Ma on 11-10-2022 Albumin/Globulin [Mass ratio] 1.0 {ratio} 0.9-2.4 [facility] Serum or plasma calcium chiki urement (mass/volume)Ordered By: Keren Ma on 11-10-2022 Calcium [Mass/Vol] 9.2 mg/dL 8.5-10.1 [facility] Serum or plasma creatinine m easurement (mass/volume)Ordered By: Keren Ma on 11-10-2022 Creatinine [Mass/Vol] 0.98 mg/dL 0.70-1.30 [facility] Comment on above: The validity of the calculated GFR & GFRAA in patients over 70 years has not been determined. Clinical correlation is essential. Serum or plasma urea nitroge n measurement (mass/volume)Ordered By: Keren Ma on 11-10-2022 Urea nitrogen [Mass/Vol] 13 mg/dL 7-18 [facility] Thin prep Papanicolaou smear with manual screeningOrdered By: Keren Ma on 11-10-2022 Thin prep Papanicolaou smear with manual screening 20 U/L 15-37 [facility] Thin prep Papanicolaou smear with manual screening 5 5-15 [facility] Whole blood hemoglobin A1c/t otal hemoglobin ratio (mass fraction)Ordered By: Keren Ma on 11-10-2022 HbA1c (Bld) [Mass fraction] 6.3 % 3.8-5.6 [facility] Comment on above: Normal < 5.7 % Predi abetic 5.7 - 6.4 % Diabetic >or= 6.5 % Please note range changes. Absolute lymphocyte countOrd ered By: Keren Ma on 11-07-2022 Lymphocytes Auto (Unsp spec) [#/Vol] 1.83 10*3/uL 0.83-4.51 [facility] Basophil percentageOrdered B y: Keren Ma on 11-07-2022 Basophils/100 WBC (Bld) 0.8 % 0-1 [facility] Eosinophils/100 WBC (Bld) 6.5 % 0-5 [facility] Neutrophils (Bld) [#/Vol] 3.3 10*3/uL 2.0-7.7 [facility] Neutrophils/100 WBC (Bld) 54.2 % 47-70 [facility] WBC (Bld) [#/Vol] 6.1 10*3/uL 4.4-11.0 [facility] Blood erythrocytes count (nu mber/volume)Ordered By: Keren Ma on 11-07-2022 RBC (Bld) [#/Vol] 4.80 10*6/uL 4.6-6.2 [facility] Blood hemoglobin measurement (mass/volume)Ordered By: Keren Ma on 11-07-2022 Hemoglobin (Bld) [Mass/Vol] 15.8 g/dL 13.0-16.5 [facility] Blood lymphocytes/100 leukoc ytesOrdered By: Keren Ma on 11-07-2022 Lymphocytes/100 WBC (Bld) 29.9 % 19-41 [facility] Blood monocytes/100 leukocyt esOrdered By: Keren Ma on 11-07-2022 Monocytes/100 WBC (Bld) 8.3 % 0-10 [facility] Blood platelet mean volumeOr dered By: Keren Ma on 11-07-2022 Platelet mean volume (Bld) [Entitic vol] 9.3 fL 6.2-12.0 [facility] Determination of erythrocyte mean corpuscular volume (MCV)Ordered By: Keren Ma on 11-07-2022 MCV (RBC) [Entitic vol] 95.6 fL 80-94 [facility] Hematocrit Auto (Bld) [Volum e fraction]Ordered By: Keren Ma on 11-07-2022 Hematocrit (Bld) [Volume fraction] 45.9 % 40-54 [facility] Laboratory - Hematology and Cell countsOrdered By: Keren Ma on 11-07-2022 Erythrocyte distribution width (RBC) [Entitic vol] 43.7 fL 35.1-43.9 [facility] Erythrocyte distribution width (RBC) [Ratio] 12.2 % 11.6-14.6 [facility] Immature granulocytes/100 WBC (Bld) 0.300 % 0.0-0.9 [facility] Comment on above: IG% - Immature Granu locytes (promyelocytes, myelocytes and metamyelocytes) > 1% indicates that a LEFT SHIFT is Present. MCH (RBC) [Entitic mass] 32.9 pg 27.0-32.0 [facility] Nucleated RBC/100 WBC (Bld) [Ratio] 0 % 0-5 [facility] MCHC Auto (RBC) [Mass/Vol]Or dered By: Keren Ma on 11-07-2022 MCHC (RBC) [Mass/Vol] 34.4 g/dL 32-36 [facility] No Panel InformationOrdered By: Keren Ma on 11-07-2022 Thyroid Stimulating Hormone (TSH) 1.00 uIU/mL 0.358-3.74 [facility] Platelets bldOrdered By: Ele aM on 11-07-2022 Platelets (Bld) [#/Vol] 253 10*3/uL 150-450 [facility] Basophil percentageOrdered B y: Dr. Ma on 07-12-2022 Bilirubin [Mass/Vol] 0.40 mg/dL 0.20-1.00 [facility] Comment on above: For patients on eltr ombopag therapy, use of Dimension Bryan TBIL is not recommended. Chloride [Moles/Vol] 103 mmol/L 98-107 [facility] Cholesterol [Mass/Vol] 170 mg/dL <200 [facility] Comment on above: <200 mg/dL Desirable 200-240 mg/dL Borderline >240 mg/dL High Risk Glucose [Mass/Vol] 159 mg/dL 74-106 [facility] Comment on above: Fasting Glucose resu lt greater than or equal to 126 mg/dL suggests DIABETES MELLITUS per A.D.A. criteria. Potassium [Moles/Vol] 4.1 mmol/L 3.5-5.1 [facility] Comment on above: Slight Hemolysis, Re sult may be falsely increased. Protein [Mass/Vol] 7.5 g/dL 6.4-8.2 [facility] Sodium [Moles/Vol] 139 mmol/L 136-145 [facility] Triglyceride [Mass/Vol] 467 mg/dL <199 [facility] Comment on above: The drugs N-Acetylcy steine and Metamizole may falsely depress this assay. TRIGLYCERIDE IS GREATER THAN 400 mg/dL. LDL RESULT IS INVALID AND WILL NOT BE REPORTED.Serum Triglycerides Reference Interval Normal <150 mg/dL Borderline high 150 - 199 mg/dL High 200 - 499 mg/dL Very High > or = 500 mg/dL Laboratory - Chemistry and C hemistry - challengeOrdered By: Dr. Ma on 07-12-2022 ALP [Catalytic activity/Vol] 101 U/L 45-117 [facility] ALT [Catalytic activity/Vol] 39 U/L 16-61 [facility] CO2 [Moles/Vol] 30.0 mmol/L 21.0-32.0 [facility] Globulin (S) [Mass/Vol] 3.8 g/dL 2.2-4.2 [facility] Urea nitrogen/Creatinine [Mass ratio] 24.4 mg/mg 10-20 [facility] No Panel InformationOrdered By: Dr. Ma on 07-12-2022 Estimated GFR (MDRD) Amer 116 mL/min >60 [facility] Comment on above: GFR Calc Estimated GFR (MDRD) Non-Af Amer 96 mL/min >60 [facility] Comment on above: Non- GFR Calc Prostate Specific Antigen Screen 2.07 ng/mL 0.00-4.00 [facility] Comment on above: This test was perfor med using the TPSA assay method for [employer] chemistry system. Values obtained with differentassay methods cannot be used interchangably.When changing PSA assays in the course of monitoring apatient, additional sequential testing should be carriedout to confirm baseline values. Urine Microalbumin/Creatinine Ratio 8.8 mg/g CRE <30 [facility] Serum or plasma albumin chiki urement (mass/volume)Ordered By: Dr. Ma on 07-12-2022 Albumin [Mass/Vol] 3.7 g/dL 3.2-5.0 [facility] Serum or plasma albumin/glob ulin mass ratioOrdered By: Dr. Ma on 07-12-2022 Albumin/Globulin [Mass ratio] 1.0 {ratio} 0.9-2.4 [facility] Serum or plasma calcium chiki urement (mass/volume)Ordered By: Dr. Ma on 07-12-2022 Calcium [Mass/Vol] 9.0 mg/dL 8.5-10.1 [facility] Serum or plasma cholesterol in HDL measurement (mass/volume)Ordered By: Dr. Ma on 07-12-2022 Cholesterol in HDL [Mass/Vol] 26 mg/dL >40 [facility] Comment on above: The drugs N-Acetylcy steine and Metamizole may falsely depress this assay. Reference Range HDL <40 mg/dL Low HDL Cholesterol HDL >or= 60 mg/dL High HDL Cholesterol Serum or plasma cholesterol in VLDL measurement (mass/volume)Ordered By: Dr. Ma on 07-12-2022 Cholesterol in VLDL [Mass/Vol] TNP [facility] Comment on above: Test not performed Serum or plasma creatinine m easurement (mass/volume)Ordered By: Dr. Ma on 07-12-2022 Creatinine [Mass/Vol] 0.86 mg/dL 0.70-1.30 [facility] Comment on above: The validity of the calculated GFR & GFRAA in patients over 70 years has not been determined. Clinical correlation is essential. Serum or plasma low density lipoprotein (LDL) cholesterol measurement (mass/volume)Ordered By: Dr. Ma on 07-12-2022 Cholesterol in LDL [Mass/Vol] TNP [facility] Comment on above: Test not performed Serum or plasma urea nitroge n measurement (mass/volume)Ordered By: Dr. Ma on 07-12-2022 Urea nitrogen [Mass/Vol] 21 mg/dL 7-18 [facility] Thin prep Papanicolaou smear with manual screeningOrdered By: Dr. Ma on 07-12-2022 Thin prep Papanicolaou smear with manual screening 27 U/L 15-37 [facility] Comment on above: Slight Hemolysis, Re sult may be falsely increased. Thin prep Papanicolaou smear with manual screening 6 5-15 [facility] Thin prep Papanicolaou smear with manual screening 14.0 mg/L NO RANGE EST. [facility] Urine creatinine measurement (mass/volume)Ordered By: Dr. Ma on 07-12-2022 Creatinine (U) [Mass/Vol] 159.00 mg/dL NO RANGE EST. [facility] Whole blood hemoglobin A1c/t otal hemoglobin ratio (mass fraction)Ordered By: Dr. Ma on 07-12-2022 HbA1c (Bld) [Mass fraction] 6.7 % 3.8-5.6 [facility] Comment on above: Normal < 5.7 % Predi abetic 5.7 - 6.4 % Diabetic >or= 6.5 % Please note range changes. Absolute lymphocyte counton 01-12-2022 Lymphocytes Auto (Unsp spec) [#/Vol] 1.98 10*3/uL 0.83-4.51 [facility] Work Phone: Basophil percentageon 2021 Basophils/100 WBC (Bld) 0.4 % 0-1 [facility] Work Phone: Bilirubin [Mass/Vol] 0.50 mg/dL 0.20-1.00 [facility] Work Phone: Comment on above: For patients on eltr ombopag therapy, use of Dimension Bryan TBIL is not recommended. Chloride [Moles/Vol] 103 mmol/L 98-107 [facility] Work Phone: Eosinophils/100 WBC (Bld) 6.6 % 0-5 [facility] Work Phone: Glucose [Mass/Vol] 147 mg/dL 74-106 [facility] Work Phone: Comment on above: Fasting Glucose resu lt greater than or equal to 126 mg/dL suggests DIABETES MELLITUS per A.D.A. criteria. Neutrophils (Bld) [#/Vol] 3.7 10*3/uL 2.0-7.7 [facility] Work Phone: Neutrophils/100 WBC (Bld) 54.8 % 47-70 [facility] Work Phone: Potassium [Moles/Vol] 3.9 mmol/L 3.5-5.1 [facility] Work Phone: Protein [Mass/Vol] 7.8 g/dL 6.4-8.2 [facility] Work Phone: Sodium [Moles/Vol] 138 mmol/L 136-145 [facility] Work Phone: WBC (Bld) [#/Vol] 6.8 10*3/uL 4.4-11.0 [facility] Work Phone: Blood erythrocytes count (nu mber/volume)on 01-12-2022 RBC (Bld) [#/Vol] 4.97 10*6/uL 4.6-6.2 [facility] Work Phone: Blood hemoglobin measurement (mass/volume)on 01-12-2022 Hemoglobin (Bld) [Mass/Vol] 16.0 g/dL 13.0-16.5 [facility] Work Phone: Blood lymphocytes/100 leukoc yteson 01-12-2022 Lymphocytes/100 WBC (Bld) 29.0 % 19-41 [facility] Work Phone: Blood monocytes/100 leukocyt eson 01-12-2022 Monocytes/100 WBC (Bld) 8.9 % 0-10 [facility] Work Phone: Blood platelet mean volumeon 01-12-2022 Platelet mean volume (Bld) [Entitic vol] 9.1 fL 6.2-12.0 [facility] Work Phone: Determination of erythrocyte mean corpuscular volume (MCV)on 01-12-2022 MCV (RBC) [Entitic vol] 94.8 fL 80-94 [facility] Work Phone: Hematocrit Auto (Bld) [Volum e fraction]on 01-12-2022 Hematocrit (Bld) [Volume fraction] 47.1 % 40-54 [facility] Work Phone: Laboratory - Chemistry and C hemistry - challengeon 01-12-2022 ALP [Catalytic activity/Vol] 95 U/L 45-117 [facility] Work Phone: ALT [Catalytic activity/Vol] 33 U/L 16-61 [facility] Work Phone: CO2 [Moles/Vol] 29.0 mmol/L 21.0-32.0 [facility] Work Phone: Globulin (S) [Mass/Vol] 4.0 g/dL 2.2-4.2 [facility] Work Phone: Urea nitrogen/Creatinine [Mass ratio] 19.9 mg/mg 10-20 [facility] Work Phone: Laboratory - Hematology and Cell countson 01-12-2022 Erythrocyte distribution width (RBC) [Entitic vol] 42.8 fL 35.1-43.9 [facility] Work Phone: Erythrocyte distribution width (RBC) [Ratio] 12.3 % 11.6-14.6 [facility] Work Phone: Immature granulocytes/100 WBC (Bld) 0.300 % 0.0-0.9 [facility] Work Phone: Comment on above: IG% - Immature Granu locytes (promyelocytes, myelocytes and metamyelocytes) > 1% indicates that a LEFT SHIFT is Present. MCH (RBC) [Entitic mass] 32.2 pg 27.0-32.0 [facility] Work Phone: Nucleated RBC/100 WBC (Bld) [Ratio] 0 % 0-5 [facility] Work Phone: [phone] MCHC Auto (RBC) [Mass/Vol]on 01-12-2022 MCHC (RBC) [Mass/Vol] 34.0 g/dL 32-36 [facility] Work Phone: No Panel Informationon 01-12 Estimated GFR (MDRD) Amer 126 mL/min >60 [facility] Work Phone: Comment on above: GFR Calc Estimated GFR (MDRD) Non-Af Amer 104 mL/min >60 [facility] Work Phone: Comment on above: Non- GFR Calc Platelets bldon 01-12-2022 Platelets (Bld) [#/Vol] 264 10*3/uL 150-450 [facility] Work Phone: [phone] Serum or plasma albumin chiki urement (mass/volume)on 01-12-2022 Albumin [Mass/Vol] 3.8 g/dL 3.2-5.0 [facility] Work Phone: [phone] Serum or plasma albumin/glob ulin mass ratioon 01-12-2022 Albumin/Globulin [Mass ratio] 1.0 {ratio} 0.9-2.4 [facility] Work Phone: [phone] Serum or plasma calcium chiki urement (mass/volume)on 01-12-2022 Calcium [Mass/Vol] 9.0 mg/dL 8.5-10.1 [facility] Work Phone: [phone] Serum or plasma creatinine m easurement (mass/volume)on 01-12-2022 Creatinine [Mass/Vol] 0.80 mg/dL 0.70-1.30 [facility] Work Phone: Comment on above: The validity of the calculated GFR & GFRAA in patients over 70 years has not been determined. Clinical correlation is essential. Serum or plasma urea nitroge n measurement (mass/volume)on 01-12-2022 Urea nitrogen [Mass/Vol] 16 mg/dL 7-18 [facility] Work Phone: Thin prep Papanicolaou smear with manual screeningon 01-12-2022 Thin prep Papanicolaou smear with manual screening 18 U/L 15-37 [facility] Work Phone: Thin prep Papanicolaou smear with manual screening 6 5-15 [facility] Work Phone: [phone] Whole blood hemoglobin A1c/t otal hemoglobin ratio (mass fraction)on 01-12-2022 HbA1c (Bld) [Mass fraction] 6.2 % 3.8-5.6 [facility] Work Phone: Comment on above: Normal < 5.7 % Predi abetic 5.7 - 6.4 % Diabetic >or= 6.5 % Please note range changes. Absolute lymphocyte counton 09-07-2021 Lymphocytes Auto (Unsp spec) [#/Vol] 1.82 10*3/uL 0.83-4.51 [facility] Work Phone: Basophil percentageon 2021 Basophils/100 WBC (Bld) 0.9 % 0-1 [facility] Work Phone: [phone] Bilirubin [Mass/Vol] 0.60 mg/dL 0.20-1.00 [facility] Work Phone: Comment on above: For patients on eltr ombopag therapy, use of Dimension Bryan TBIL is not recommended. Chloride [Moles/Vol] 103 mmol/L 98-107 [facility] Work Phone: [phone] Cholesterol [Mass/Vol] 153 mg/dL <200 [facility] Work Phone: [phone] Comment on above: <200 mg/dL Desirable 200-240 mg/dL Borderline >240 mg/dL High Risk Eosinophils/100 WBC (Bld) 9.0 % 0-5 [facility] Work Phone: Glucose [Mass/Vol] 139 mg/dL 74-106 [facility] Work Phone: [phone] Comment on above: Fasting Glucose resu lt greater than or equal to 126 mg/dL suggests DIABETES MELLITUS per A.D.A. criteria. Neutrophils (Bld) [#/Vol] 3.7 10*3/uL 2.0-7.7 [facility] Work Phone: [phone] Neutrophils/100 WBC (Bld) 54.7 % 47-70 [facility] Work Phone: [phone] Potassium [Moles/Vol] 4.7 mmol/L 3.5-5.1 [facility] Work Phone: [phone] Protein [Mass/Vol] 7.4 g/dL 6.4-8.2 [facility] Work Phone: Sodium [Moles/Vol] 137 mmol/L 136-145 [facility] Work Phone: Triglyceride [Mass/Vol] 113 mg/dL [facility] Work Phone: Comment on above: The drugs N-Acetylcy steine and Metamizole may falsely depress this assay.Serum Triglycerides Reference Interval Normal <150 mg/dL Borderline high 150 - 199 mg/dL High 200 - 499 mg/dL Very High > or = 500 mg/dL WBC (Bld) [#/Vol] 6.7 10*3/uL 4.4-11.0 [facility] Work Phone: Blood erythrocytes count (nu mber/volume)on 09-07-2021 RBC (Bld) [#/Vol] 4.80 10*6/uL 4.6-6.2 [facility] Work Phone: [phone] Blood hemoglobin measurement (mass/volume)on 09-07-2021 Hemoglobin (Bld) [Mass/Vol] 15.3 g/dL 13.0-16.5 [facility] Work Phone: Blood lymphocytes/100 leukoc yteson 09-07-2021 Lymphocytes/100 WBC (Bld) 27.2 % 19-41 [facility] Work Phone: Blood monocytes/100 leukocyt eson 09-07-2021 Monocytes/100 WBC (Bld) 7.9 % 0-10 [facility] Work Phone: Blood platelet mean volumeon 09-07-2021 Platelet mean volume (Bld) [Entitic vol] 10.4 fL 6.2-12.0 [facility] Work Phone: Determination of erythrocyte mean corpuscular volume (MCV)on 09-07-2021 MCV (RBC) [Entitic vol] 98.3 fL 80-94 [facility] Work Phone: Hematocrit Auto (Bld) [Volum e fraction]on 09-07-2021 Hematocrit (Bld) [Volume fraction] 47.2 % 40-54 [facility] Work Phone: Laboratory - Chemistry and C hemistry - challengeon 09-07-2021 ALP [Catalytic activity/Vol] 76 U/L 45-117 [facility] Work Phone: ALT [Catalytic activity/Vol] 31 U/L 16-61 [facility] Work Phone: [phone] CO2 [Moles/Vol] 30.0 mmol/L 21.0-32.0 [facility] Work Phone: [phone] Globulin (S) [Mass/Vol] 3.7 g/dL 2.2-4.2 [facility] Work Phone: Urea nitrogen/Creatinine [Mass ratio] 20.9 mg/mg 10-20 [facility] Work Phone: Laboratory - Hematology and Cell countson 09-07-2021 Erythrocyte distribution width (RBC) [Entitic vol] 44.7 fL 35.1-43.9 [facility] Work Phone: Erythrocyte distribution width (RBC) [Ratio] 12.3 % 11.6-14.6 [facility] Work Phone: [phone] Immature granulocytes/100 WBC (Bld) 0.300 % 0.0-0.9 [facility] Work Phone: Comment on above: IG% - Immature Granu locytes (promyelocytes, myelocytes and metamyelocytes) > 1% indicates that a LEFT SHIFT is Present. MCH (RBC) [Entitic mass] 31.9 pg 27.0-32.0 [facility] Work Phone: [phone] Nucleated RBC/100 WBC (Bld) [Ratio] 0 % 0-5 [facility] Work Phone: [phone] MCHC Auto (RBC) [Mass/Vol]on 09-07-2021 MCHC (RBC) [Mass/Vol] 32.4 g/dL 32-36 [facility] Work Phone: [phone] No Panel Informationon 09-07 Estimated GFR (MDRD) Amer 116 mL/min >60 [facility] Work Phone: [phone] Comment on above: GFR Calc Estimated GFR (MDRD) Non-Af Amer 96 mL/min >60 [facility] Work Phone: [phone] Comment on above: Non- GFR Calc Platelets bldon 09-07-2021 Platelets (Bld) [#/Vol] 274 10*3/uL 150-450 [facility] Work Phone: [phone] Serum or plasma albumin chiki urement (mass/volume)on 09-07-2021 Albumin [Mass/Vol] 3.7 g/dL 3.2-5.0 [facility] Work Phone: [phone] Serum or plasma albumin/glob ulin mass ratioon 09-07-2021 Albumin/Globulin [Mass ratio] 1.0 {ratio} 0.9-2.4 [facility] Work Phone: [phone] Serum or plasma calcium chiki urement (mass/volume)on 09-07-2021 Calcium [Mass/Vol] 8.7 mg/dL 8.5-10.1 [facility] Work Phone: [phone] Serum or plasma cholesterol in HDL measurement (mass/volume)on 09-07-2021 Cholesterol in HDL [Mass/Vol] 31 mg/dL [facility] Work Phone: Comment on above: The drugs N-Acetylcy steine and Metamizole may falsely depress this assay. Reference Range HDL <40 mg/dL Low HDL Cholesterol HDL >or= 60 mg/dL High HDL Cholesterol Serum or plasma cholesterol in VLDL measurement (mass/volume)on 09-07-2021 Cholesterol in VLDL [Mass/Vol] 23 mg/dL 5-40 [facility] Work Phone: Serum or plasma creatinine m easurement (mass/volume)on 09-07-2021 Creatinine [Mass/Vol] 0.86 mg/dL 0.70-1.30 [facility] Work Phone: Comment on above: The validity of the calculated GFR & GFRAA in patients over 70 years has not been determined. Clinical correlation is essential. Serum or plasma low density lipoprotein (LDL) cholesterol measurement (mass/volume)on 09-07-2021 Cholesterol in LDL [Mass/Vol] 99 mg/dL 0-130 [facility] Work Phone: Serum or plasma urea nitroge n measurement (mass/volume)on 09-07-2021 Urea nitrogen [Mass/Vol] 18 mg/dL 7-18 [facility] Work Phone: Thin prep Papanicolaou smear with manual screeningon 09-07-2021 Thin prep Papanicolaou smear with manual screening 27 U/L 15-37 [facility] Work Phone: [phone] Thin prep Papanicolaou smear with manual screening 4 5-15 [facility] Work Phone: Whole blood hemoglobin A1c/t otal hemoglobin ratio (mass fraction)on 09-07-2021 HbA1c (Bld) [Mass fraction] 6.2 % 3.8-5.6 [facility] Work Phone: Comment on above: Normal < 5.7 % Predi abetic 5.7 - 6.4 % Diabetic >or= 6.5 % Please note range changes. Nilo 08-05-2020 [facility] Telephone (TRUE) GIAN CARBALLO ([id number]) 1960 M Date Time Provider Department 08/05/20 ANTONY THOMAS During your visit today, we recorded the following information about you: Seun Ji 08/05/2020 1:04 PM Signed Called patient he refuses to schedule. [facility] I tried to explain why he cant have this [facility] and he was getting worked up because I didn't give him a time for the procedure. Obinna Dale PA-C 08/05/2020 5:50 PM Signed Please follow up with patient. Can offer him procedure at [facility] with Dr. Swanson or Dr. Hong. Needs to have Monitored Anesthetic Care though, as discussed at his appointment Omar Sahni LPN 08/06/2020 8:35 AM Signed No answer. Unable to leave voice mail. Fidel Reinaldo WILSON 08/06/2020 8:59 AM Signed [facility] that He would not have procedure done @ [facility]. He stated he only wants it done @ [address]. He also states he doesn't think he needs both EGD AND Colonoscopy. Pt states his issue with [facility] is not having arrival time until business day before, however when offered to get an estimate in advance he stated he probably won't have a ride to that location. After lengthy conversation trying to appease pt reached an impasse and he decline any services from this office. Allergies As of Date: 08/05/2020 Noted Allergy Reaction MELOXICAM 07/02/2015 14 - Other: See Comments Comments: chest pains VICODIN (HYDROCODONE-ACETAMINO PHE*05/28/2009 2 - Rash Date Reviewed: 08/04/2020 Reviewed by: Obinna Dale - Fully Assessed Reason for Visit: Follow Up Phone Call [[phone]] Prescriptions as of 08/05/2020 Sig: ALOGLIPTIN 25 MG TABLET Take 1 tablet by mouth once d* HYDROCHLOROTHIAZIDE 12.5 MG T* Take 12.5 mg by mouth once da* METOPROLOL TARTRATE 50 MG TAB* Take 50 mg by mouth twice keturah* METFORMIN 500 MG TABLET Take 2 tablets by mouth twice* FENOFIBRATE 160 MG TABLET Take 1 tablet by mouth once d* AMLODIPINE 10 MG-BENAZEPRIL 4* TAKE 1 CAPSULE DAILY PRAVASTATIN 40 MG TABLET TAKE 1 TABLET DAILY FOR MINDI* OMEGA-3 FATTY ACIDS 1,000 MG * Take 2 capsules by mouth once* Problem List As Of Date 08/05/2020 Noted Resolved Mixed hyperlipidemia [E78.2] 12/27/2007 Hydrocele [N43.3] 05/12/2009 Essential hypertension [I10] 09/12/2014 Colon cancer screening [Z12.11] 09/12/2014 Prostate cancer screening [Z12.5] 09/12/2014 Proteinuria [R80.9] 10/22/2014 Well adult exam [Z00.00] 10/24/2014 Ex-smoker [Z87.891] 10/24/2014 Diabetes mellitus type 2, uncontrolled, without*06/22/2015 Chronic pain of left knee [M25.562, G89.29] 06/29/2015 Exposure to hepatitis C [Z20.5] 06/29/2015 Encounter for diabetes type 2 eye exam (HCC) [Z*07/06/2015 Encounter Status:Closed by SEUN JI on 08/06/20 [facility] CNOVon 08-04-2020 CNOV Office Visit (SWS ) GIAN CARBALLO ([id number]) 1960 M Date Time Provider Department 08/04/20 1:00 PM OBINNA DALE During your visit today, we recorded the following information about you: Temperature Pulse Blood pressure Weight 98.1 degrees 110/minute 138/88 100.3 kg Height 1.74 m Obinna Dale PA-C 08/04/2020 3:33 PM Signed HISTORY AND PHYSICAL Gian Carballo 1960 REFERRING PHYSICIAN: Lele Whalen, * CHIEF COMPLAINT: Consult (Consult Positive cologuard) HPI: The patient is a 59 year old male referred for endoscopy. Gian notes no colon complaints, but recently had a Cologuard test mailed to him which came back positive. Patient denies any change in bowel habits, weight changes, blood in stools, black tarry stools or abdominal pain. Denies family history of colon issues. The patient notes that he had been on a course of steroids just prior to taking the cologuard test, and also that he was having stomach pain at that time. He states his doctor was concerned that he was having bleeding/irritation secondary to the steroids. He denies a prior history of stomach ulcers. He denies any alcohol or tobacco use, but does note occasional marijuana use. Gian has not undergone prior endoscopy. Patient's past medical history is significant for diabetes mellitus, hypertension and hyperlipidemia. He follows with Dr. Whalen for his chronic medical conditions, and his most recent office visit note is reviewed. Patient denies any known cardiac or pulmonary issues. Review of Epic mentions an encounter in 2017 for chest pain, per that provider's note ED was recommended and patient left visit angrily. Patient states today that he does not recall ever having chest pain, and does not know if he has ever seen a mobile developer. He states he has no longer been working over the last few years and notes much less stress in his life, denies any pain or other concerns over the last few years and feels he is in good health. Patient does note issues with anesthesia in the past. States when he had a hernia repair at [facility] several years ago his oxygen dropped low and he went into convulsions. He states no cause was ever discovered as to this reaction. PAST MEDICAL HISTORY Diagnosis Date - Diabetes mellitus without mention of complication Diabetes mellitus - Hyperlipidemia - Inguinal hernia bilateral 05/12/2009 - Mixed hyperlipidemia Hyperlipidemia - Unspecified essential hypertension Essential hypertension PAST SURGICAL HISTORY Procedure Laterality Date - LAP REPAIR INTIAL INGUINAL HERNIA 05-29-09 BILATERAL HERNIA - PAST SURGICAL HISTORY OF 1999 umbilical hernia repair - PAST SURGICAL HISTORY OF 1980 cyst on chin Current Outpatient Medications Medication Sig - alogliptin (NESINA) 25 mg tab Take 1 tablet by mouth once daily. - hydroCHLOROthiazide (HYDRODIURIL, ESIDRIX) 12.5 mg tablet Take 12.5 mg by mouth once daily. - metoprolol tartrate, short acting, (LOPRESSOR) 50 mg tablet Take 50 mg by mouth twice daily. - metFORMIN (GLUCOPHAGE) 500 mg tablet Take 2 tablets by mouth twice daily with meals. - amLODIPine-Benazepril 10-40 mg per capsule TAKE 1 CAPSULE DAILY - pravastatin (PRAVACHOL) 40 mg tablet TAKE 1 TABLET DAILY FOR CHOLESTEROL - omega-3 fatty acids 1,000 mg cap Take 2 capsules by mouth once daily. - Fenofibrate (LOFIBRA) 160 mg tablet Take 1 tablet by mouth once daily. No current facility-administered medications for this visit. ALLERGIES: Meloxicam and Vicodin [Hydrocodone-Acetamino phen] PERSONAL HISTORY: Social History Tobacco Use - Smoking status: Former Smoker - Smokeless tobacco: Never Used - Tobacco comment: quit smoking 2001 Substance Use Topics - Alcohol use: No - Drug use: No FAMILY HISTORY: FAMILY HISTORY Problem Relation Age of Onset - Hypertension Mother - Hypertension Father - Diabetes Father - Hypertension Brother REVIEW OF SYMPTOMS: The review of systems data was entered by the nurse and reviewed by tx Nursing Notes: Omar Sahni LPN 08/04/2020 1:45 PM Signed REVIEW OF SYSTEMS: General: The patient denies fatigue, denies weight loss, denies weight gain, denies feeling hot, and denies feelings of cold. Eyes: The patient denies glaucoma, denies eye injury/surgery, wears glasses or contacts. Ear/Nose/Throat: The patient denies allergies, denies hayfever, denies ear infections, and denies bloody noses. Cardiovascular: The patient denies chest pain, denies heart disease, NOTES high blood pressure,denies cardiac stent, denies prior heart attack, denies irregular heart beat, NOTES high cholesterol, denies poor circulation, denies heart failure, other cardiac issues, denies claudication, denies cold feet, denies peripheral arterial stent. Respiratory: The patient denies tuberculosis, denies pneumonia, de (more content not included)... Normal [facility] Nilo 08-04-2020 [facility] Telephone ([employer]) GIAN CARBALLO ([id number]) 1960 M Date Time Provider Department 08/04/20 ANTONY THOMAS During your visit today, we recorded the following information about you: Omar Kaitlyn WILSON 08/04/2020 2:18 PM Signed Please contact patient for colon/EGD with Dr. Thomas in [place]. I schedule COVID testing for 08/30/2020 and accidentally gave date of 09/01, aware you will call to reschedule. Patient is NIDDM. Allergies As of Date: 08/04/2020 Noted Allergy Reaction MELOXICAM 07/02/2015 14 - Other: See Comments Comments: chest pains VICODIN (HYDROCODONE-ACETAMINO PHE*05/28/2009 2 - Rash Date Reviewed: 08/04/2020 Reviewed by: Obinna Dale - Fully Assessed Reason for Visit: Procedure [88] Prescriptions as of 08/04/2020 Sig: ALOGLIPTIN 25 MG TABLET Take 1 tablet by mouth once d* HYDROCHLOROTHIAZIDE 12.5 MG T* Take 12.5 mg by mouth once da* METOPROLOL TARTRATE 50 MG TAB* Take 50 mg by mouth twice keturah* PEG 3350-ELECTROLYTES 236 GRA* Take 4,000 mL by mouth one ti* METFORMIN 500 MG TABLET Take 2 tablets by mouth twice* FENOFIBRATE 160 MG TABLET Take 1 tablet by mouth once d* AMLODIPINE 10 MG-BENAZEPRIL 4* TAKE 1 CAPSULE DAILY PRAVASTATIN 40 MG TABLET TAKE 1 TABLET DAILY FOR MINDI* OMEGA-3 FATTY ACIDS 1,000 MG * Take 2 capsules by mouth once* Problem List As Of Date 08/04/2020 Noted Resolved Mixed hyperlipidemia [E78.2] 12/27/2007 Hydrocele [N43.3] 05/12/2009 Essential hypertension [I10] 09/12/2014 Colon cancer screening [Z12.11] 09/12/2014 Prostate cancer screening [Z12.5] 09/12/2014 Proteinuria [R80.9] 10/22/2014 Well adult exam [Z00.00] 10/24/2014 Ex-smoker [Z87.891] 10/24/2014 Diabetes mellitus type 2, uncontrolled, without*06/22/2015 Chronic pain of left knee [M25.562, G89.29] 06/29/2015 Exposure to hepatitis C [Z20.5] 06/29/2015 Encounter for diabetes type 2 eye exam (HCC) [Z*07/06/2015 Encounter Status:Closed by OMAR SAHNI LPN on 09/02/20 Normal [facility] Vital Signs Date Time Vital Sign Value Performing Clinician Faci lity 12-30-2024 09:27-0400 Body height 172.[address] Keren Ma MD Work Phone: [facility] 12-30-2024 09:27-0400 Body mass index (BMI) [Ratio] 31 kg/m2 Dr. Keren Ma MD Work Phone: [facility] 12-30-2024 09:27-0400 Body temperature 98.4 [degF] Dr. Keren Ma MD Work Phone: [facility] 12-30-2024 09:27-0400 Body weight 92.[address] Keren Ma MD Work Phone: [facility] 12-30-2024 09:27-0400 Diastolic blood pressure 91 mm[Hg] Dr. Keren Ma MD Work Phone: [facility] 12-30-2024 09:27-0400 Heart rate 93 /min Dr. Keren Ma MD Work Phone: [facility] 12-30-2024 09:27-0400 Respiratory rate 16 /min Dr. Keren Ma MD Work Phone: [facility] 12-30-2024 09:27-0400 SaO2% (BldA) [Mass fraction] 95 % Dr. Keren Ma MD Work Phone: [facility] 12-30-2024 09:27-0400 Systolic blood pressure 143 mm[Hg] Dr. Keren Ma MD Work Phone: [facility] 09-23-2024 11:06-0400 Body height 172.[address] Keren Ma MD Work Phone: [facility] 09-23-2024 11:06-0400 Body mass index (BMI) [Ratio] 31.8 kg/m2 Dr. Keren Ma MD Work Phone: [facility] 09-23-2024 11:06-0400 Body temperature 98.4 [degF] Dr. Keren Ma MD Work Phone: [facility] 09-23-2024 11:06-0400 Body weight 95.[address] Keren Ma MD Work Phone: [facility] 09-23-2024 11:06-0400 Diastolic blood pressure 89 mm[Hg] Dr. Keren Ma MD Work Phone: [facility] 09-23-2024 11:06-0400 Heart rate 95 /min Dr. Keren Ma MD Work Phone: [facility] 09-23-2024 11:06-0400 Respiratory rate 16 /min Dr. Keren Ma MD Work Phone: [facility] 09-23-2024 11:06-0400 SaO2% (BldA) [Mass fraction] 94 % Dr. Keren Ma MD Work Phone: [facility] 09-23-2024 11:06-0400 Systolic blood pressure 144 mm[Hg] Dr. Keren Ma MD Work Phone: [facility] 08-12-2024 13:09-0400 Body mass index (BMI) [Ratio] 31.9 kg/m2 Dr. Keren Ma MD Work Phone: [facility] 08-12-2024 13:09-0400 Body temperature 98.4 [degF] Dr. Keren Ma MD Work Phone: [facility] 08-12-2024 13:09-0400 Body weight 95.[address] Keren Ma MD Work Phone: [facility] 08-12-2024 13:09-0400 Diastolic blood pressure 81 mm[Hg] Dr. Keren Ma MD Work Phone: [facility] 08-12-2024 13:09-0400 Heart rate 92 /min Dr. Keren Ma MD Work Phone: [facility] 08-12-2024 13:09-0400 Respiratory rate 16 /min Dr. Keren Ma MD Work Phone: [facility] 08-12-2024 13:09-0400 SaO2% (BldA) [Mass fraction] 94 % Dr. eKren Ma MD Work Phone: [facility] 08-12-2024 13:09-0400 Systolic blood pressure 150 mm[Hg] Dr. Keren Ma MD Work Phone: [facility] 11-14-2022 13:04-0400 Body height 172.[address] Keren Ma Work Phone: [facility] 11-14-2022 13:04-0400 Body mass index (BMI) [Ratio] 32.3 kg/m2 Dr. Keren Ma Work Phone: [facility] 11-14-2022 13:04-0400 Body temperature 98.1 [degF] Dr. Keren Ma Work Phone: [facility] 11-14-2022 13:04-0400 Body weight 96.[address] Keren Ma Work Phone: [facility] 11-14-2022 13:04-0400 Diastolic blood pressure 82 mm[Hg] Dr. Keren Ma Work Phone: [facility] 11-14-2022 13:04-0400 Heart rate 98 /min Dr. Keren Ma Work Phone: [facility] 11-14-2022 13:04-0400 Respiratory rate 18 /min Dr. Keren Ma Work Phone: [facility] 11-14-2022 13:04-0400 SaO2% (BldA) [Mass fraction] 96 % Dr. Keren Ma Work Phone: [facility] 11-14-2022 13:04-0400 Systolic blood pressure 123 mm[Hg] Dr. Keren Ma Work Phone: [facility] 07-18-2022 12:57-0400 Body height 172.[address] Keren Ma Work Phone: [facility] 07-18-2022 12:57-0400 Body mass index (BMI) [Ratio] 32.5 kg/m2 Dr. Keren Ma Work Phone: [facility] 07-18-2022 12:57-0400 Body temperature 98.4 [degF] Dr. Keren Ma Work Phone: [facility] 07-18-2022 12:57-0400 Body weight 97.[address] Keren Ma Work Phone: [facility] 07-18-2022 12:57-0400 Diastolic blood pressure 78 mm[Hg] Dr. Keren Ma Work Phone: [facility] 07-18-2022 12:57-0400 Heart rate 90 /min Dr. Keren Ma Work Phone: [facility] 07-18-2022 12:57-0400 Respiratory rate 16 /min Dr. Keren Ma Work Phone: [facility] 07-18-2022 12:57-0400 SaO2% (BldA) [Mass fraction] 97 % Dr. Keren Ma Work Phone: [facility] 07-18-2022 12:57-0400 Systolic blood pressure 122 mm[Hg] Dr. Keren Ma Work Phone: [facility] 05-18-2021 14:08-0500 Body height 172.[address] Jordan Whalen Work Phone: [facility] Work Phone: 05-18-2021 14:08-0500 Body mass index (BMI) [Ratio] 33.9 kg/m2 Dr. Jordan Whalen Work Phone: [facility] Work Phone: 05-18-2021 14:08-0500 Body temperature 97.1 [degF] Dr. Jordan Whalen Work Phone: [facility] Work Phone: 05-18-2021 14:08-0500 Body weight 101.[address] Jordan Whalen Work Phone: [facility] Work Phone: 05-18-2021 14:08-0500 Diastolic blood pressure 82 mm[Hg] Dr. Jordan Whalen Work Phone: [facility] Work Phone: 05-18-2021 14:08-0500 Heart rate 94 /min Dr. Jordan Whalen Work Phone: [facility] Work Phone: 05-18-2021 14:08-0500 Respiratory rate 16 /min Dr. Jordan Whalen Work Phone: [facility] Work Phone: 05-18-2021 14:08-0500 SaO2% (BldA) [Mass fraction] 98 % Dr. Jordan Whalen Work Phone: [facility] Work Phone: 05-18-2021 14:08-0500 Systolic blood pressure 138 mm[Hg] Dr. Jordan Whalen Work Phone: [facility] Work Phone: Encounters Encounter Date Encounter Type Care Provider Facility Start: 12-30-2024 End: 12-30-[address] Keren Ma MD -[facility] Work Phone: Start: 12-30-2024 End: 12-30-[address] Keren Ma MD Work Phone: -[facility] Start: 12-26-2024 End: 12-26-[address] Keren Ma MD Work Phone: -Laboratory Start: 12-26-2024 End: 12-26-[address] Keren Ma MD -Laboratory Work Phone: Start: 12-26-2024 End: 12-26-[address] [facility] Facility:[facility] Start: 09-23-2024 End: 09-23-2024 Patient encounter procedure Dr. Keren Ma MD -[facility] Work Phone: Start: 09-23-2024 End: 09-23-[address] Keren Ma MD Work Phone: [facility] Work Phone: Start: 09-19-2024 End: 09-19-[address] Keren Ma MD Work Phone: [facility] Work Phone: Start: 09-19-2024 End: 09-19-[address] Keren Ma MD -Laboratory Work Phone: Start: 09-19-2024 End: 09-19-2024 [facility] Start: 08-12-2024 End: 08-12-[address] Keren Ma MD -[facility] Work Phone: Start: 08-12-2024 End: 08-12-2024 ambulatory Keren Ma [place] [place]: 03-25-2024 End: 03-25-2024 ambulatory Keren Ma [place] Start: 03-20-2024 End: 03-20-2024 ambulatory Kerenmarilyn Ma Facility:[facility] Start: 11-14-2022 End: 11-14-[address] Keren Ma Work Phone: [facility] Work Phone: Start: 11-10-2022 End: 11-10-[address] Keren Ma Work Phone: [facility] Work Phone: Start: 11-10-2022 End: 11-10-[address] [facility] Start: 11-07-2022 End: 11-07-[address] [facility]: Start: 07-18-2022 End: 07-18-[address] Keren Ma Work Phone: [facility] Start: 07-12-2022 End: 07-12-[address] Keren Ma Work Phone: [facility] Work Phone: Start: 07-12-2022 End: 07-12-[address] [facility] Start: 01-12-2022 End: 01-12-2022 ambulatory [facility] Work Phone: Start: 01-12-2022 End: 01-12-2022 [facility] Start: 09-07-2021 End: 09-07-[address] Jordan Whalen Work Phone: [facility] Start: 05-18-2021 End: 05-18-[address] Jordan Whalen Work Phone: [facility] Internal Medicine Procedures Date Procedure Procedure Detail Performing Clinician Start: 09-19-2024 Vitamin D, 25-hydrox y measurement Dr. Keren Ma MD Work Phone: Comment on above: Vitamin D StatusDefi ciency: <20 ng/mL (50nmol/L)Insufficiency: 20-30 ng/mL (50-75 nmol/L)Sufficiency: 30-100 ng/mL (75-250 nmol/L)Toxicity: >100 ng/mL (>250 nmol/L) Plan of Treatment Date Care Activity Detail Author Start: 07-12-2022 Assay of prostate sp ecific antigen total ASSAY OF PSA TOTAL [facility] CBC W Auto Different ial panel - Blood [facility] Comprehensive metabo lic 1999 panel - Serum or Plasma [facility] Hemoglobin A1c/Hemoglobin.total in Blood [facility] Hemoglobin A1c/Hemoglobin.total in Blood [facility] Hemoglobin A1c/Hemoglobin.total in Blood [facility] Lipid 1995 panel - S joanna or Plasma [facility] Lipid 1995 panel - S joanna or Plasma [facility] Lipid 1995 panel - S joanna or Plasma [facility] Prostate specific an tigen measurement [facility] Thyroid stimulating hormone measurement [facility] Vitamin D, 25-hydrox y measurement [facility] Vitamin D, 25-hydrox y measurement [facility] Payers Date Payer Category Payer Self-pay [id number] 2020 Unknown [id number] 2003 Private Health Insurance [id number] Unknown [id number] Unknown [id number] [id number] [id number] Unknown [id number] 2.16.8 [id number] Unknown [id number] 2.16.8 [id number] Unknown [id number] 2.16.8 [id number] Unknown [id number] 2.16.8 [id number] Unknown [id number] 2.16.8 [id number] Unknown [id number] [id number] Social History Date Type Detail Facility Start: 05-18-2021 End: 11-14-2022 Tobacco smoking status [facility] Unknown if ever smoked [facility] Start: 1960 Sex Assigned At Male W [facility] Start: 05-24-2023 Tobacco smoking stat us WAIS Ex-smoker (finding) [facility] Evaluation note 09-23-2024 Note Date & Type Note Facility 09-23-2024 Evaluation note Diagnosis Onset Date Resolution DM w/o complication type II acute September 23, 2024 10:56am Insulin resistance acute September 232024 10:56am [facility] Work Phone: Evaluation note 09-23-2024 Note Date & Type Note Facility 09-23-2024 Evaluation note Diagnosis Onset Date Resolution DM w/o complication type II acute September 23, 2024 10:56am Insulin resistance acute September 232024 10:56am DM w/o complication type II acute December 30 9:22am Essential hypertension acute 2024 9:22am Insulin resistance acute December 30, 2024 9:22am Other and unspecified hyperlipidemia acute December 30 9:22am [facility] Work Phone: Evaluation note 08-12-2024 Note Date & Type Note Facility 08-12-2024 Evaluation note Diagnosis Onset Date Resolution DM w/o complication type II acute August 12, 2024 1:01pm Essential hypertension acute Ap ril 2024 1:01pm Insulin resistance acute August 12, 2024 1:01pm Other and unspecified hyperlipidemia acute August 12, 2024 1:01pm [facility] Work Phone: Evaluation note 08-12-2024 Note Date & Type Note Facility 08-12-2024 Evaluation note Diagnosis Onset Date Resolution DM w/o complication type II acute August 12, 2024 1:01pm Essential hypertension acute Ap ril 2024 1:01pm Insulin resistance acute August 12, 2024 1:01pm Other and unspecified hyperlipidemia acute August 12, 2024 1:01pm DM w/o complication type II acute September 23, 2024 10:56am Insulin resistance acute September 232024 10:56am [facility] Work Phone: Progress note 08-04-2020 Note Date & Type Note Facility 08-04-2020 Note HNO ID: [id number] Author: Obinna Dale Service: ? Author Type: Physician Auto Service Mechanic Type: Progress Notes Filed: 08/04/2020 3:33 PM Note Text: HISTORY AND PHYSICAL Gian Carballo 1960 REFERRING PHYSICIAN: Lele Whalen, * CHIEF COMPLAINT: Consult (Consult Positive cologuard) HPI: The patient is a 59 year old male referred for endoscopy. Gain notes no colon complaints, but recently had a Cologuard test mailed to him which came back positive. Patient denies any change in bowel habits, weight changes, blood in stools, black tarry stools or abdominal pain. Denies family history of colon issues. The patient notes that he had been on a course of steroids just prior to taking the cologuard test, and also that he was having stomach pain at that time. He states his doctor was concerned that he was having bleeding/irritation secondary to the steroids. He denies a prior history of stomach ulcers. He denies any alcohol or tobacco use, but does note occasional marijuana use. Gian has not undergone prior endoscopy. Patient's past medical history is significant for diabetes mellitus, hypertension and hyperlipidemia. He follows with Dr. Whalen for his chronic medical conditions, and his most recent office visit note is reviewed. Patient denies any known cardiac or pulmonary issues. Review of Epic mentions an encounter in 2017 for chest pain, per that provider's note ED was recommended and patient left visit angrily. Patient states today that he does not recall ever having chest pain, and does not know if he has ever seen a mobile developer. He states he has no longer been working over the last few years and notes much less stress in his life, denies any pain or other concerns over the last few years and feels he is in good health. Patient does note issues with anesthesia in the past. States when he had a hernia repair at [facility] several years ago his oxygen dropped low and he went into convulsions. He states no cause was ever discovered as to this reaction. PAST MEDICAL HISTORY Diagnosis Date - Diabetes mellitus without mention of complication Diabetes mellitus - Hyperlipidemia - Inguinal hernia bilateral 05/12/2009 - Mixed hyperlipidemia Hyperlipidemia - Unspecified essential hypertension Essential hypertension PAST SURGICAL HISTORY Procedure Laterality Date - LAP REPAIR INTIAL INGUINAL HERNIA 05-29-09 BILATERAL HERNIA - PAST SURGICAL HISTORY OF 1999 umbilical hernia repair - PAST SURGICAL HISTORY OF 1980 cyst on chin Current Outpatient Medications Medication Sig - alogliptin (NESINA) 25 mg tab Take 1 tablet by mouth once daily. - hydroCHLOROthiazide (HYDRODIURIL, ESIDRIX) 12.5 mg tablet Take 12.5 mg by mouth once daily. - metoprolol tartrate, short acting, (LOPRESSOR) 50 mg tablet Take 50 mg by mouth twice daily. - metFORMIN (GLUCOPHAGE) 500 mg tablet Take 2 tablets by mouth twice daily with meals. - amLODIPine-Benazepril 10-40 mg per capsule TAKE 1 CAPSULE DAILY - pravastatin (PRAVACHOL) 40 mg tablet TAKE 1 TABLET DAILY FOR CHOLESTEROL - omega-3 fatty acids 1,000 mg cap Take 2 capsules by mouth once daily. - Fenofibrate (LOFIBRA) 160 mg tablet Take 1 tablet by mouth once daily. No current facility-administered medications for this visit. ALLERGIES: Meloxicam and Vicodin [Hydrocodone-Acetaminophen] PERSONAL HISTORY: Social History Tobacco Use - Smoking status: Former Smoker - Smokeless tobacco: Never Used - Tobacco comment: quit smoking 2000 Substance Use Topics - Alcohol use: No - Drug use: No FAMILY HISTORY: FAMILY HISTORY Problem Relation Age of Onset - Hypertension Mother - Hypertension Father - Diabetes Father - Hypertension Brother REVIEW OF SYMPTOMS: The review of systems data was entered by the nurse and reviewed by tx Nursing Notes: Omar Sahni LPN 08/04/2020 1:45 PM Signed REVIEW OF SYSTEMS: General: The patient denies fatigue, denies weight loss, denies weight gain, denies feeling hot, and denies feelings of cold. Eyes: The patient denies glaucoma, denies eye injury/surgery, wears glasses or contacts. Ear/Nose/Throat: The patient denies allergies, denies hayfever, denies ear infections, and denies bloody noses. Cardiovascular: The patient denies chest pain, denies heart disease, NOTES high blood pressure,denies cardiac stent, denies prior heart attack, denies irregular heart beat, NOTES high cholesterol, denies poor circulation, denies heart failure, other cardiac issues, denies claudication, denies cold feet, denies peripheral arterial stent. Respiratory: The patient denies tuberculosis, denies pneumonia, denies frequent cough, denies pulmonary embolism, denies shortness of breath, and denies coughing up blood. Gastrointestinal: The patient denies difficulty swallowing, denies acid reflux, denies ulcers, denies vomiting, denies jaundice/hepatitis, denies gallbladder problems, den (more content not included)... [facility] Evaluation note Note Date & Type Note Facility Evaluation note Diagnosis Onset Date DM w/o complication type II acute Essential hypertension acute Other and unspecified hyperlipidemia [facility] Work Phone: Evaluation note Note Date & Type Note Facility Evaluation note No assessment information availa [facility] Work Phone: Evaluation note Note Date & Type Note Facility Evaluation note Diagnosis Onset Date DM w/o complication type II acute Eczema acute Essential hypertension acute Onychomycosis acute Other and unspecified hyperlipidemia [facility] Work Phone: Evaluation note Note Date & Type Note Facility Evaluation note Diagnosis Onset Date DM w/o complication type II acute Essential hypertension acute Insulin resistance acute Onychomycosis acute Other and unspecified hyperlipidemia [facility] Work Phone: Reason for referral (narrative) Note Date & Type Note Facility Reason for referral (narrative) No reason for referral information available [facility] Work Phone: Summary Purpose Family History No Family History Records Found Relationship Condition Age at Onset Recorded Date/T soniya Not Specified Diabetes mellitus Unknown Hypertension Unknown Advance Directives No Advanced Directives Records FoundNo Advanced Directives Records Found Chief Complaint and Reason for Visit Chief Complaint EST CARE- DIABETES H TN Reason for Visit DM w/o complication type II Essential hypertension Other and unspecified hyperlipidemia Chief Complaint E ORDERS Chief Complaint E ORDERS 6 M FU Reason for Visit DM w/o complication type II Eczema Essential hypertension Onychomycosis Other and unspecified hyperlipidemia Chief Complaint INT LABS 4 M FU Reason for Visit DM w/o complication type II Essential hypertension Insulin resistance Onychomycosis Other and unspecified hyperlipidemia Chief Complaint Admit Date Discuss Medication August 12, 2024 1:01 pm 1.5 M FU September 23, 2024 10:56 am Reason for Visit Admit Date DM w/o complication type II August 12, 2 025 1:01pm Essential hypertension August 12, 2024 1 :01pm Insulin resistance August 12, 2024 1:01 pm Other and unspecified hyperlipidemia Aug 1:01pm Reason for Visit Admit Date DM w/o complication type II August 12, 2 025 1:01pm Essential hypertension August 12, 2024 1 :01pm Insulin resistance August 12, 2024 1:01 pm Other and unspecified hyperlipidemia Aug 1:01pm DM w/o complication type II September 23 10:56am Insulin resistance September 23, 2024 10:56 am Chief Complaint Admit Date 1.5 M FU September 23, 2024 10:56 am E ORDERS December 26, 2024 12 :15pm 2 M FU December 30, 2024 9: 22am Reason for Visit Admit Date DM w/o complication type II September 23 10:56am Insulin resistance September 23, 2024 10:56 am Reason for Visit Admit Date DM w/o complication type II September 23 10:56am Insulin resistance September 23, 2024 10:56 am DM w/o complication type II December 30, 2024 9:22am Essential hypertension December 30, 2024 9:22am Insulin resistance December 30, 2024 9: 22am Other and unspecified hyperlipidemia Dec 9:22am Additional Source Comments (unrecognized sect ion and content) No Status Records FoundNo Status Records Found INFORMATION SOURCE (unrecogn ized section and content) DATE CREATED AUTHOR 06/17/2021 [facility] DATE CREATED AUTHOR AUTHOR'S ORGANIZ ATION 01/03/2025 [facility] Goals (unrecognized section and content) Goals may be documented in a n alternate sectionGoals may be documented in an alternate sectionGoals may be documented in an alternate sectionGoals may be documented in an alternate sectionGoals may be documented in an alternate sectionGoals may be documented in an alternate sectionGoals may be documented in an alternate sectionGoals may be documented in an alternate section Care Teams (unrecognized sec tion and content) Team Status: Active Member Role Status Dates Dr. Jordan Whalen MD Family Provider Active Dr. Keren Ma MD Primary Care Provider Active Team Status: Inactive Member Role Status Dates Dr. Keren Ma MD Primary Care Provider, Attendi ng Provider Active Team Status: Inactive Member Role Status Dates Dr. Keren Ma MD Primary Care Pro vider, Attending Provider, Referring Provider Active Team Status: Active Member Role Status Dates Dr. Lele Whalen MD Family Provider Active Dr. Keren Ma MD Primary Care Provider Active Team Status: Inactive Member Role Status Dates Dr. Keren Ma MD Primary Care Provider Active Start: August 12, 2024 End: August 12, 2024 Dr. Keren Ma MD Attending Provider Active Start: August 12, 2024 End: August 12, 2024 Team Status: Active Member Role Status Dates Dr. Keren Ma MD Primary Care Provider Active Start: September 19, 2024 Dr. Keren Ma MD Attending Provider Active Start: September 19, 2024 Dr. Keren Ma MD Referring Provider Active Start: September 19, 2024 Team Status: Inactive Member Role Status Dates Dr. Keren Ma MD Primary Care Provider Active Start: September 23, 2024 End: September 23, 2024 Dr. Keren Ma MD Attending Provider Active Start: September 23, 2024 End: September 23, 2024 Team Status: Inactive Member Role Status Dates Dr. Keren Ma MD Primary Care Provider Active Start: September 19, 2024 End: September 19, 2024 Dr. Keren Ma MD Attending Provider Active Start: September 19, 2024 End: September 19, 2024 Dr. Keren Ma MD Referring Provider Active Start: September 19, 2024 End: September 19, 2024 Team Status: Active Member Role/Relationship Status Dates Dr. Lele Whalen MD Family Provider Active Dr. Keren Ma MD Primary Care Provider Active Team Status: Inactive Member Role/Relationship Status Dates Dr. Keren Ma MD Primary Care Provider Active Start: September 19, 2024 End: September 19, 2024 Dr. Keren Ma MD Attending Provider Active Start: September 19, 2024 End: September 19, 2024 Dr. Keren Ma MD Referring Provider Active Start: September 19, 2024 End: September 19, 2024 Team Status: Inactive Member Role/Relationship Status Dates Dr. Keren Ma MD Primary Care Provider Active Start: September 23, 2024 End: September 23, 2024 Dr. Keren Ma MD Attending Provider Active Start: September 23, 2024 End: September 23, 2024 Team Status: Active Member Role/Relationship Status Dates Dr. Keren Ma MD Primary Care Provider Active Start: December 26, 2024 Dr. Keren Ma MD Attending Provider Active Start: December 26, 2024 Dr. Keren Ma MD Referring Provider Active Start: December 26, 2024 Team Status: Inactive Member Role/Relationship Status Dates Dr. Keren Ma MD Primary Care Provider Active Start: December 30, 2024 End: December 30, 2024 Dr. Keren Ma MD Attending Provider Active Start: December 30, 2024 End: December 30, 2024 Team Status: Inactive Member Role/Relationship Status Dates Dr. Keren Ma MD Primary Care Provider Active Start: December 26, 2024 End: December 26, 2024 Dr. Keren Ma MD Attending Provider Active Start: December 26, 2024 End: December 26, 2024 Dr. Keren Ma MD Referring Provider Active Start: December 26, 2024 End: December 26, 2024 FOR RECORDS PERTAINING TO PATIENTS WHO ARE OR HAVE BEEN ENROLLED IN A CHEMICAL DEPENDENCY/SUBSTANCEABUSE PROGRAM, SOME INFORMATION MAY BE OMITTED. This clinical summary was aggregated from multiple sources. Caution should be exercised in using it in the provision of clinical care. This summary normalizes information from multiple sources, and as a consequence, information in this document may materially change the coding, format and clinical context of patient data. In addition, data may be omitted in some cases. CLINICAL DECISIONS SHOULD BE BASED ON THE PRIMARY CLINICAL RECORDS. [facility] [employer] provides no warranty or guarantee of the accuracy or completeness of information in this document.
[2025-03-26 13:07] LABS: AST(SGOT) 24 U/L (<=37); Alanine Aminotransfer ALT/SGPT 31 U/L (<=46); Albumin, Serum 4.2 g/dL (3.4-4.8); Alkaline Phosphatase 104 U/L (40-129); Anion Gap 8 (5-15); BUN 14 mg/dL (4-19); BUN/Creat Ratio 17.6 RATIO (10-20); Calcium,Total 9.4 mg/dL (7.6-11.0); Carbon Dioxide 27.9 mmol/L (21.0-32.0); Chloride 103 mmol/L (98-108); Cholesterol 167 mg/dL (<=200); Globulin 3.0 g/dL (2.2-4.2); Glucose 118 mg/dL (70-99); Low Density Lipoprotein Calc. 91 mg/dL; PSA,Total - Annual Screen 2.92 ng/mL (0.02-4.00); Potassium 4.6 mmol/L (3.3-5.1); Triglycerides 278 mg/dL; Very Low Density Lipoprotein 56 mg/dL (5-40); Vitamin D,25 Hydroxy 23.0 ng/mL (30-100); cholesterol:hdl ratio screen 5.78
== END | disposition home or self-care (01) ==
LOC: MTLAB 09:40
PROVIDERS: PCP Internal Medicine; Referring Provider Internal Medicine; Visit Provider Internal Medicine
DX: E11.65 Type 2 diabetes mellitus with hyperglycemia (principal); E55.9 Vitamin D deficiency, unspecified; E78.5 Hyperlipidemia, unspecified; I10 Essential (primary) hypertension; Z12.5 Encounter for screening for malignant neoplasm of prostate; Z13.220 Encounter for screening for lipoid disorders
CPT/HCPCS: 84153; 80053; 80061; 82306; 83036; 84443; G0103